=== PATIENT | male | born 1970 | race Caucasian/White ===

== ENCOUNTER 2022-04-09 14:06 | Inpatient (IN) | payer MEDICAID ==
[~2022-04-09] VITALS: Ht 165.1 cm; Wt 72.6 kg
--- NOTE | 2022-04-09 14:07 | NUR ---
AMBULATED TO ER BED 3
[2022-04-09 14:12] VITALS: BP 127/74
--- NOTE | 2022-04-09 14:20 | NUR ---
51 y/o male, c/o chest pain and cough for 2 months, worsened yesterday. pt now has sob, fever and difficulty breathing. denies nausea, vomiting, diarrhea. skin is pale/hot/dry. gibraltarian speaking, a&o x4 with even and steady gait. lungs wheezing bl, accessory muscle use/shallow resp/tachypnea, heart rate even and tachycardic. pt denies dysuria, hematuria, urinary frequency or retention, or anyone sick in the household with the same symptoms. pt states pain is 9/10 at this time. patient positioned for comfort. hob elevated. bed down. ermd made aware of pt. pmh: htn, hld, stroke 2020 nka med: vitamin c, aspirin, simvastatin
--- NOTE | 2022-04-09 14:23 | NUR ---
PT MOVED TO ER BED 1 R/O SERENA
--- NOTE | 2022-04-09 14:37 | NUR ---
labs drawn, ángel swabbed, sent to lab at this time
[2022-04-09 14:54] LABS: BASOPHILS # (AUTO) 0.1 K/uL (0.00-0.22); BASOPHILS % (AUTO) 1.2 % (0.0-2.0); EOSINOPHILS % (AUTO) 0.4 % (0.0-4.0); HEMATOCRIT 35.1 % (36-52); HEMOGLOBIN 11.5 g/dL (12.0-18.0); LYMPHOCYTES # (AUTO) 0.8 K/uL (2.0-11.5); LYMPHOCYTES % (AUTO) 8.3 % (20.5-51.1); MEAN CORPUSCULAR HEMOGLOBIN 31 pg (27-31); MEAN CORPUSCULAR HGB CONC 33 g/dL (33-37); MEAN CORPUSCULAR VOLUME 93.9 fL (80-94); MONOCYTES # (AUTO) 0.7 K/uL (0.8-1.0); MONOCYTES % (AUTO) 7.2 % (1.7-9.3); NEUTROPHILS # (AUTO) 8.2 K/uL (1.8-7.7); NEUTROPHILS % (AUTO) 82.9 % (42.2-75.2); PLATELET COUNT (AUTO) 212 K/uL (140-450); RED BLOOD CELL COUNT(AUTO) 3.74 MIL/uL (4.20-6.10); RED CELL DISTRIBUTION WIDTH 15.2 % (11.6-13.7); WHITE BLOOD COUNT (AUTO) 9.9 K/uL (4.8-10.8)
[2022-04-09] MEDS ORDERED: ACETAMINOPHEN EXTRA STRENGTH 500 MG TAB PO ONE (15:00)
[2022-04-09] MEDS ORDERED: DOXYCYCLINE 100 MG in DEXTROSE 5% 100 ML IV ONE (15:00)
[2022-04-09] MEDS ORDERED: NACL 0.9% 2,000 ML IV ONE (15:00)
--- NOTE | 2022-04-09 15:08 | NUR ---
X-Ray at bedside.
[2022-04-09 15:14] LABS: ALBUMIN 3.3 g/dL (3.4-5.0); CARBON DIOXIDE 21.7 mmol/L (21-32); CREATININE 0.8 mg/dL (0.6-1.3); POTASSIUM 3.7 mmol/L (3.5-5.1); TOTAL BILIRUBIN 1.1 mg/dL (0.0-1.0)
[2022-04-09] MEDS ORDERED: cefTRIAXone 1,000 MG VIAL ONE (15:15)
[2022-04-09] MEDS ORDERED: DOXYCYCLINE 100 MG VIAL IV ONE (16:02)
[2022-04-09] MEDS ORDERED: ASPI-1822 PO (16:23)
[2022-04-09] MEDS ORDERED: SIMV-30 PO (16:23)
[2022-04-09] MEDS ORDERED: ASCO60LO9 PO (16:23)
--- NOTE | 2022-04-09 16:45 | NUR ---
Patient will be admitted to care of Taylor PROCTOR. Admited to Telemetry. Will go to room 116. Belongings list completed. Report to Koffi LEY.
--- NOTE | 2022-04-09 16:48 | NUR ---
COVID sample obtained walked to lab.
--- NOTE | 2022-04-09 17:30 | NUR ---
RECEIVED REPORT FROM ER NURSE. ADMITTED 51 Y/O MALE WITH A CC OF SOB. ADMITTING DX OF PNA. HX OF CVA, AND CARDIAC DISORDER PER PATIENT. AOX4, ABLE TO MAKE NEEDS KNOWN. WITH SOB UPON EXERTION, ON RA, 96% SATURATION. ST ON MONITOR. NO C/O PAIN. WITH IV ON LUNA 18G, SALINE LOCKED. SAFETY AND ISOLATION PRECAUTION IN PLACE, CALL LIGHT WITHIN REACH. PLAN OF CARE DISCUSSED
[2022-04-09 17:42] VITALS: BP 134/68
--- NOTE | 2022-04-09 18:52 | NUR ---
Note juvencio in ED - [facility] be [facility] to care of Taylor PROCTOR. Admited to Telemetry. Will go to room 116. Belongings list completed. Report to Koffi LEY.
--- NOTE | 2022-04-09 19:25 | NUR ---
RECEIVED BEDSIDE REPORT FROM DAY SHIFT RN FOR CONTINUITY OF CARE. PT IS AWAKE IN BED. PT IS NOT IN ANY DISTRESS. BREATHING EVEN AND UNLABORED. PT IS AAOX4 BELARUSIAN SPEAKER. PT HAS LUNA 18 GAUGE SALINE LOCK. PT HAS NO COMPLAINS AT THIS TIME. WILL CONTINUE TO MONITOR THE PT.
[2022-04-09 20:00] VITALS: BP 110/72
[2022-04-09] MEDS ORDERED: PIPERACILLIN/TAZOBACTAM 3.375 GM VIAL IV ONE (20:17)
[2022-04-09] MEDS: PIPERACILLIN/TAZOBACTAM 3.375 GM in DEXTROSE 5% 50 ML IV SCH (20:46)
--- NOTE | 2022-04-09 20:50 | NUR ---
ALL DUE MEDS GIVEN. NO ADVERSE REACTION NOTED. WILL CONTINUE TO MONITOR THE PT.
--- NOTE | 2022-04-09 23:25 | NUR ---
PT IS SLEEPING IN BED COMFORTABLY. PT IS NOT IN ANY DISTRESS. BREATHING EVEN AND UNLABORED. CALL LIGHT WITHIN REACH. ALL SAFETY MEASURE TAKEN. WILL CONTINUE TO MONITOR THE PT.
[2022-04-10] VITALS: BP 108/70
--- NOTE | 2022-04-10 02:12 | NUR ---
PT IS ON NC 2L NOW SATING 97%. PT IS NOT IN ANY DISTRESS. BREATHING EVEN AND UNLABORED. CALL LIGHT WITHIN REACH. ALL SAFETY MEASURES TAKEN. WILL CONTINUE TO MONITOR THE PT.
--- NOTE | 2022-04-10 03:35 | NUR ---
PT LEFT FOR CT SCAN IN WHEELCHAIR
[2022-04-10] MEDS ORDERED: PIPERACILLIN/TAZOBACTAM 3.375 GM VIAL IV ONE (03:52)
[2022-04-10 04:00] VITALS: BP 114/71
[2022-04-10] MEDS: PIPERACILLIN/TAZOBACTAM 3.375 GM in DEXTROSE 5% 50 ML IV SCH ×3 (04:04→21:03)
--- NOTE | 2022-04-10 04:10 | NUR ---
ALL DUE MEDS GIVEN. NO ADVERSE REACTION NOTED. WILL CONTINUE TO MONITOR THE PT.
[2022-04-10 06:46] LABS: BASOPHILS # (AUTO) 0.2 K/uL (0.00-0.22); BASOPHILS % (AUTO) 1.9 % (0.0-2.0); EOSINOPHILS # (AUTO) 0.1 K/uL (0-0.4); HEMATOCRIT 32.4 % (36-52); HEMOGLOBIN 10.5 g/dL (12.0-18.0); LYMPHOCYTES # (AUTO) 1.4 K/uL (2.0-11.5); LYMPHOCYTES % (AUTO) 13.9 % (20.5-51.1); MEAN CORPUSCULAR HEMOGLOBIN 31 pg (27-31); MEAN CORPUSCULAR HGB CONC 32 g/dL (33-37); MEAN CORPUSCULAR VOLUME 94.6 fL (80-94); MONOCYTES # (AUTO) 0.6 K/uL (0.8-1.0); MONOCYTES % (AUTO) 5.8 % (1.7-9.3); NEUTROPHILS # (AUTO) 7.8 K/uL (1.8-7.7); NEUTROPHILS % (AUTO) 77.4 % (42.2-75.2); PLATELET COUNT (AUTO) 212 K/uL (140-450); RED BLOOD CELL COUNT(AUTO) 3.42 MIL/uL (4.20-6.10); RED CELL DISTRIBUTION WIDTH 15.4 % (11.6-13.7); WHITE BLOOD COUNT (AUTO) 10.1 K/uL (4.8-10.8)
[2022-04-10 06:55] LABS: ANION GAP 12.9 (8-16); CARBON DIOXIDE 21.2 mmol/L (21-32); CREATININE 0.7 mg/dL (0.6-1.3); POTASSIUM 4.1 mmol/L (3.5-5.1)
--- NOTE | 2022-04-10 07:08 | NUR ---
PATIENT HAS BEEN SCREENED AND CATEGORIZED MODERATE NUTRITION RISK. PATIENT WILL BE SEEN WITHIN 3-5 DAYS OF ADMISSION. / [address]
--- NOTE | 2022-04-10 07:15 | NUR ---
RECEIVED REPORT FROM CARETAKER NURSE. PT IS A&OX4, ON 2L O2, NC. PT BREATHING PATTERN UNLABORED. PT HAS RIGHT UA, 18G. ALL SAFETY MEASURES DONE, CALL LIGHT WITHIN REACH. DISCUSSED PLAN OF CARE. WILL CONTINUE TO MONITOR.
--- NOTE | 2022-04-10 07:21 | NUR ---
ENDORSED PT TO DAY SHIFT RN FOR CONTINUITY OF CARE. PT IS STABLE.
[2022-04-10 08:00] VITALS: BP 102/69
--- NOTE | 2022-04-10 08:50 | NUR ---
GAVE PT PATRICIO PHONE BACK TO HIM.
[2022-04-10] MEDS ORDERED: ONDANSETRON 4 MG/2 ML VIAL IM/IVP PRN (10:55)
[2022-04-10] MEDS ORDERED: HYDROcodone/APAP 5/325 MG 1 TAB TAB PO PRN (10:55)
[2022-04-10] MEDS ORDERED: ALBUTEROL HFA MDI 90 MCG/ACTUATION 8 GM INH PRN (10:55)
[2022-04-10] MEDS ORDERED: LORazepam 2 MG/ML VIAL IM/IVP PRN (10:55)
[2022-04-10] MEDS ORDERED: ZOLPIDEM 5 MG TAB PO PRN (10:55)
[2022-04-10] MEDS ORDERED: DOCUSATE SODIUM 100 MG GELCAP PO PRN (10:55)
--- NOTE | 2022-04-10 10:55 | NUR ---
URINE SPECIMEN COLLECTED AND BROUGHT TO LABS. STARTED IV FLUIDS NACL 1000ML AT 60ML/HR, INFUSING WELL.
[2022-04-10] MEDS: NACL 0.9% 1,000 ML IV SCH (11:28)
[2022-04-10 11:54] LABS: PROTHROMBIN TIME 11.2 secs (10.8-13.4)
[2022-04-10 12:00] VITALS: BP 92/54
--- NOTE | 2022-04-10 12:00 | NUR ---
PT IS AWAKE, LYING ON HIS BED. PT NOT IN DISTRESS AT THIS TIME. WILL CONTINUE TO MONITOR.
[2022-04-10 12:07] LABS: CHOL/HDL RATIO 4.4 (1-4.5); THYROID STIMULATING HORMONE 0.43 uIU/mL (0.34-3.74)
[2022-04-10 16:00] VITALS: BP 107/72
--- NOTE | 2022-04-10 16:00 | NUR ---
PT IS SLEEPING, LYING ON HIS BED. NO DISTRESS NOTED AT THIS TIME.
[2022-04-10 16:57] LABS: BARBITURATE, URINE NEGATIVE ng/ml (NEG <=200); BENZODIAZEPINE, URINE NEGATIVE ng/mL (NEG <=200); CANNABINOID, URINE NEGATIVE ng/mL (NEG <=50); COCAINE, URINE NEGATIVE ng/mL (NEG <=300); OPIATE, URINE NEGATIVE ng/mL (NEG <=2000); PHENCYCLIDINE SCREEN,URINE NEGATIVE ng/mL (NEG <=25)
[2022-04-10] MEDS: ACETAMINOPHEN 325 MG TAB PO PRN (18:58)
--- NOTE | 2022-04-10 18:59 | NUR ---
PT COMPLAINED OF PAIN ON UPPER ABDOMEN, WITH A PAIN LEVEL OF 3. GAVE TYLENOL PER DR'S ORDER.
--- NOTE | 2022-04-10 19:10 | NUR ---
GAVE REPORT TO LIBRARY SCIENCE INSTRUCTOR NURSE. PT IS STABLE. DISCUSSED PLAN OF CARE.
[2022-04-10 19:52] LABS: APPEARANCE,URINE CLEAR (CLEAR); BILIRUBIN,URINE NEGATIVE (NEGATIVE); BLOOD, URINE NEGATIVE (NEGATIVE); COLOR,URINE YELLOW (YELLOW); LEUKOCYTE ESTERASE ,URINE NEGATIVE (NEGATIVE); NITRITE, URINE NEGATIVE (NEGATIVE); PH,URINE 5.5 (5.0-9.0); UGLUCOSE NEGATIVE (NEGATIVE)
[2022-04-10 20:00] VITALS: BP 108/74
--- NOTE | 2022-04-10 20:00 | NUR ---
RECEIVED BEDSIDE REPORT FROM DAY SHIFT RN FOR CONTINUITY OF CARE. PT AWAKE, ALERT AND ORIENTED. PT IS NOT IN ANY DISTRESS.ON 2L O2 VIA NC WITH O2 SAT AT 97%, BREATHING EVEN AND UNLABORED.DANISH SPEAKER. PT HAS LUNA 18 GAUGE RUNNING NS AT 60MLS/HR. PT HAS NO COMPLAINS AT THIS TIME.ALL PRECAUTIONS IN PLACE.CALL LIGHT WITHIN REACH. WILL CONTINUE TO MONITOR.
[2022-04-10] MEDS: SIMVASTATIN 20 MG TAB PO SCH (21:03)
[2022-04-10] MEDS: ZINC SULF 220 MG CAP PO SCH (21:04)
--- NOTE | 2022-04-10 21:30 | NUR ---
SCHEDULED MEDICATIONS GIVEN. PT TOLERATED WELL. WILL CONTINUE TO MONITOR.
[2022-04-11] VITALS: BP 102/76
--- NOTE | 2022-04-11 | NUR ---
VITAL SIGNS STABLE. NO COMPLAINS OF PAIN. NO DISTRESS NOTED. WILL CONTINUE TO MONITOR.
[2022-04-11] MEDS: NACL 0.9% 1,000 ML IV SCH ×2 (03:38→21:12)
[2022-04-11 04:00] VITALS: BP 104/72
[2022-04-11] MEDS: PIPERACILLIN/TAZOBACTAM 3.375 GM in DEXTROSE 5% 50 ML IV SCH ×3 (05:13→21:12)
[2022-04-11 05:44] LABS: BASOPHILS % (AUTO) 0.5 % (0.0-2.0); EOSINOPHILS # (AUTO) 0.3 K/uL (0-0.4); EOSINOPHILS % (AUTO) 2.8 % (0.0-4.0); HEMATOCRIT 30.9 % (36-52); HEMOGLOBIN 10.1 g/dL (12.0-18.0); LYMPHOCYTES # (AUTO) 1.8 K/uL (2.0-11.5); MEAN CORPUSCULAR HEMOGLOBIN 31 pg (27-31); MEAN CORPUSCULAR HGB CONC 33 g/dL (33-37); MEAN CORPUSCULAR VOLUME 93.8 fL (80-94); MONOCYTES # (AUTO) 0.7 K/uL (0.8-1.0); NEUTROPHILS # (AUTO) 7.1 K/uL (1.8-7.7); NEUTROPHILS % (AUTO) 71.7 % (42.2-75.2); PLATELET COUNT (AUTO) 202 K/uL (140-450); RED BLOOD CELL COUNT(AUTO) 3.29 MIL/uL (4.20-6.10); RED CELL DISTRIBUTION WIDTH 15.2 % (11.6-13.7); WHITE BLOOD COUNT (AUTO) 9.8 K/uL (4.8-10.8)
[2022-04-11 06:14] LABS: ALBUMIN 2.7 g/dL (3.4-5.0); ANION GAP 9.4 (8-16); CARBON DIOXIDE 25.6 mmol/L (21-32); CREATININE 0.8 mg/dL (0.6-1.3); MAGNESIUM 1.9 mg/dL (1.8-2.4); PHOSPHORUS 2.9 mg/dL (2.5-4.9); TOTAL BILIRUBIN 1.1 mg/dL (0.0-1.0)
--- NOTE | 2022-04-11 07:10 | NUR ---
PT IS STABLE. NO ACUTE EVENTS THROUGHOUT THE NIGHT. ALL NEEDS MET. NO S/SX OF DISTRESS. ALL PRECAUTIONS IN PLACE. CALL LIGHT WITHIN REACH. WILL ENDORSE TO AM SHIFT NURSE.
--- NOTE | 2022-04-11 07:11 | NUR ---
PT ASLEEP. NO RESPIRATORY DISTRESS NOTED.BREATHING EQUAL AND UNLABORED. ALL PRECAUTIONS IN PLACE. WILL CONTINUE TO MONITOR.
--- NOTE | 2022-04-11 07:20 | NUR ---
RECEIVED REPORT FROM NEWS CAMERA OPERATOR NURSE FOR CONTINUITY OF CARE. PT IN BED, RESTING. BREATHING EVEN AND UNLABORED AT ROOM AIR. NO SOB, NO DISTRESS NOTED. PT A&04, ABLE TO MAKE HIS NEEDS KNOWN. PT ON ROCK CRUSHER OPERATOR. PT IS AMBULATORY, USES REST ROOM. PT SKIN IS INTACT, WARM AND DRY TO TOUCH. IV LINE AT LUNA G18, RUNNING NS AT 60ML/HR. CALL LIGHT WITHIN REACH. SAFETY MEASURES IN PLACE. WILL CONTINUE TO MONITOR.
[2022-04-11 08:00] VITALS: BP 94/58
--- NOTE | 2022-04-11 08:00 | NUR ---
Patient's Plan of Care was discussed and reviewed with FLAT FOLDING MACHINE OPERATOR: RAMSES BOLAND
[2022-04-11] MEDS: VITAMIN D 400 IU TAB PO SCH (09:10)
[2022-04-11] MEDS: ZINC SULF 220 MG CAP PO SCH ×2 (09:11→21:12)
[2022-04-11] MEDS: ASPIRIN 81 MG TAB.CHEW PO SCH (09:11)
[2022-04-11] MEDS: ASCORBIC ACID 500 MG TAB PO SCH (09:17)
--- NOTE | 2022-04-11 09:26 | NUR ---
ADMINISTERED SCHEDULED MORNING MEDS. EXPLAINED MEDS TO THE PT. PT VERBALIZED UNDERSTANDING. PT NOW SITTING IN BED EATING BREAKFAST. NO SOB. NO SIGNS OF DISTRESS. DENIES PAIN. CALL LIGHT WITHIN REACH. SAFETY MEASURES IN PLACE. BED LOCKED AND AT ITS LOWEST POSITION. WILL CONTINUE TO MONITOR.
--- NOTE | 2022-04-11 11:05 | NUR ---
PT IN SITTING IN BED, WATCHING TV. ASKED HOW PT IS. PT STATED "I'M OK". NO SOB. NO COMPLAINT OF PAIN. SAFETY PRECAUTIONS IN PLACE. WILL CONTINUE TO MONITOR.
[2022-04-11 12:00] VITALS: BP 99/57
--- NOTE | 2022-04-11 13:19 | NUR ---
DID ROUNDS. PT IN SITTING IN BED, WATCHING TV. NO COMPLAINTS OF PAIN. NO SOB. RESPIRATIONS EVEN AND UNLABORED. RN ADMINISTERED ZOSYN. CALL LIGHT WITHIN REACH. SAFETY PRECAUTIONS IN PLACE. WILL CONTINUE TO MONITOR.
--- NOTE | 2022-04-11 14:00 | NUR ---
DR GRIGSBY AT [facility]. Addendum: 04/11/22 at 1435 by Ann Ortez LVN ERROR
[2022-04-11 16:00] VITALS: BP 126/75
--- NOTE | 2022-04-11 17:02 | NUR ---
PT ON BEDSIDE CHAIR. WATCHING TV AND USING HIS CELLPHONE. PT IS ALERT, COMMUNICATING NEEDS TO NURSE. BREATHING EQUAL AND UNLABORED. NO SOB. NO SIGNS OF PAIN NOTED. CALL LIGHT WITHIN REACH. WILL CONTINUE TO MONITOR.
--- NOTE | 2022-04-11 19:10 | NUR ---
ENDORSED PT TO AIRCRAFT POWER PLANT ASSEMBLER NURSE FOR CONTINUITY OF CARE. ALL NEEDS MET THROUGHOUT SHIFT. PT IN STABLE CONDITION.
--- NOTE | 2022-04-11 19:15 | NUR ---
RECEIVED BEDSIDE REPORT FROM DAY SHIFT RN FOR CONTINUITY OF CARE. PT AWAKE, ALERT AND ORIENTED. PT IS NOT IN ANY DISTRESS.ON 2L O2 VIA NC WITH O2 SAT AT 97%, BREATHING EVEN AND UNLABORED.UZBEK SPEAKER. PT HAS LUNA 18 GAUGE RUNNING NS AT 60MLS/HR. PT HAS NO COMPLAINS AT THIS TIME.ALL PRECAUTIONS IN PLACE.CALL LIGHT WITHIN REACH. WILL CONTINUE TO MONITOR.
[2022-04-11 20:00] VITALS: BP 104/74
--- NOTE | 2022-04-11 21:00 | NUR ---
SCHEDULED MEDICATIONS GIVEN. PT TOLERATED WELL. WILL CONTINUE TO MONITOR.
[2022-04-11] MEDS: SIMVASTATIN 20 MG TAB PO SCH (21:12)
[2022-04-12] VITALS: BP 111/81
--- NOTE | 2022-04-12 | NUR ---
VITAL SIGNS STABLE. NO COMPLAINS OF PAIN. NO DISTRESS NOTED. WILL CONTINUE TO MONITOR.
[2022-04-12] MEDS: LEVOFLOXACIN 750 MG/D5W PREMIX 150 ML IV SCH ×2 (01:17→23:58)
--- NOTE | 2022-04-12 01:30 | NUR ---
SCHEDULED ANTIBIOTICS GIVEN.NO ACUTE DRUG REACTION NOTED. PT TOLERATED WELL. WILL CONTINUE TO MONITOR.
[2022-04-12] MEDS ORDERED: CLINDAMYCIN 600 MG/4 ML VIAL ONE (01:33)
[2022-04-12] MEDS: CLINDAMYCIN 600 MG in DEXTROSE 5% 50 ML IV SCH ×3 (01:34→17:14)
[2022-04-12 04:00] VITALS: BP 93/66
--- NOTE | 2022-04-12 05:02 | NUR ---
PT ASLEEP. NO RESPIRATORY DISTRESS NOTED.BREATHING EQUAL AND UNLABORED. ALL PRECAUTIONS IN PLACE. WILL CONTINUE TO MONITOR.
--- NOTE | 2022-04-12 07:03 | NUR ---
PT IS STABLE. NO ACUTE EVENTS THROUGHOUT THE NIGHT. ALL NEEDS MET. NO S/SX OF DISTRESS. ALL PRECAUTIONS IN PLACE. CALL LIGHT WITHIN REACH. ENDORSED TO AM SHIFT NURSE.
--- NOTE | 2022-04-12 07:05 | NUR ---
RECEIVED REPORT FORM STRIPPER LATEX NURSE FOR CONTINUITY OF CARE. ALERT ORIENTED ABLE TO MAKE NEEDS KNOWN . RESPIRATION EVEN AND NOT LABORED. ON O2 AT 2L/MIN VIA NASAL CANULA. PATIENT REMOVED FROM TIME TO TIME. ON IV HYDRATION OF NS AT 60 CC/HOUR ON RIGHT UPPER ARM JASWINDER 18. DENIES PAIN AT THIS TIME. DROPLET ISOLATION OBSERVED. ALL SAFETY MEASURE IN PLACE.
--- NOTE | 2022-04-12 07:30 | NUR ---
RECEIVED THE BEDSIDE REPORT FROM SEAFOOD PREPARER FOR CONTINUITY OF CARE. PLAN OF CARE DISCUSSED. PT STABLE.
[2022-04-12 07:35] LABS: BASOPHILS % (AUTO) 0.2 % (0.0-2.0); EOSINOPHILS % (AUTO) 0.1 % (0.0-4.0); HEMATOCRIT 30.5 % (36-52); HEMOGLOBIN 10.1 g/dL (12.0-18.0); LYMPHOCYTES % (AUTO) 8.2 % (20.5-51.1); MEAN CORPUSCULAR HEMOGLOBIN 31 pg (27-31); MEAN CORPUSCULAR HGB CONC 33 g/dL (33-37); MONOCYTES # (AUTO) 0.7 K/uL (0.8-1.0); NEUTROPHILS % (AUTO) 85.5 % (42.2-75.2); PLATELET COUNT (AUTO) 224 K/uL (140-450); RED BLOOD CELL COUNT(AUTO) 3.28 MIL/uL (4.20-6.10); WHITE BLOOD COUNT (AUTO) 11.7 K/uL (4.8-10.8)
[2022-04-12 07:48] LABS: ALBUMIN 2.6 g/dL (3.4-5.0); ANION GAP 10.9 (8-16); CARBON DIOXIDE 23.9 mmol/L (21-32); CREATININE 0.7 mg/dL (0.6-1.3); PHOSPHORUS 3.2 mg/dL (2.5-4.9); POTASSIUM 3.8 mmol/L (3.5-5.1); TOTAL BILIRUBIN 0.7 mg/dL (0.0-1.0)
[2022-04-12 08:00] VITALS: BP 98/72
--- NOTE | 2022-04-12 09:08 | NUR ---
DR. WELLS AND DR. URIAS SEEN PATIENT.
[2022-04-12] MEDS: ACETAMINOPHEN 325 MG TAB PO PRN (09:11)
[2022-04-12] MEDS: ASPIRIN 81 MG TAB.CHEW PO SCH (09:11)
[2022-04-12] MEDS: ASCORBIC ACID 500 MG TAB PO SCH (09:12)
[2022-04-12] MEDS: ZINC SULF 220 MG CAP PO SCH ×2 (09:12→21:04)
[2022-04-12] MEDS: VITAMIN D 400 IU TAB PO SCH (09:12)
--- NOTE | 2022-04-12 09:13 | NUR ---
GIVEN ALL DUE MEDICATION TOLERATED WELL.
--- NOTE | 2022-04-12 09:20 | NUR ---
AV WADDELL IV ANTIBIOTIC NO ADVERSE REACTION NOTED.
--- NOTE | 2022-04-12 11:34 | NUR ---
RECEIVED CALL FROM LABS THAT WE NEED TO COLLECT AGAIN SPUTUM SPECIMEN FOR THE PATIENT. INFORM PATIEN AND GAVE HIM SPUTUM CUP.
[2022-04-12 12:00] VITALS: BP 99/70
--- NOTE | 2022-04-12 14:29 | NUR ---
PATIENT CALLED THAT HIS IV WAS LEAKING. CHANGE IV TO RIGHT FOREARM JASWINDER 24. TOLERATED WELL ALL SAFETY PRECAUTION IN PLACE.
[2022-04-12] MEDS: NACL 0.9% 1,000 ML IV SCH (14:30)
--- NOTE | 2022-04-12 15:00 | NUR ---
DC PLANNING PATIENT IS A 51-YEAR-OLD MALE ADMITTED ON 04/09/2022 AT [facility]/ED DUE TO SHORTNESS OF BREATH WITH ASSOCIATED PRODUCTIVE COUGH. PATIENT ALSO COMPLAINTS OF CHEST PAIN THAT IS WORSE WITH INSPIRATION, PATIENT REPORTED FEELING FATIGUE AND HAVING FEVER WELL HAVING HX, OF HEART DISEASE AND PRIOR STROKE. (TAJIK SPEAKING) SW CALL PATIENT OVER THE PHONE AT DUE TO PATIENT NOT CLEAR WITH SYMPTOMS FOR COVID. SW DISCUSS AND GATHER PATIENT'S COLLATERAL INFORMATION. PATIENT REPORTED LIVING AT HOME WITH HIS NICHOLAS TEMPLETON AND HIS TWO ADULT DAUGHTERS IN HIS HOME IN [place]. PATIENT REPORTED HAVING TAKEN THE 3 COVID 19 SHOTS ALREADY AND WAS NOT SURE OF WHAT HE WAS FEELING BUT HE WAS NOT FEELING WELL WITH SHORTNESS OF BREATH,COUGH FEVER AND FATIGUE. THEREFORE; HE DECIDED TO COME TO THE HOSPITAL DUE TO SYMPTOMS. PER PATIENT HE HAS PLENTY OF FAMILY SUPPORT. PATIENT REPORTED BEEN ACTIVE AND INDEPENDENT AT HOME; PATIENT REPORTED NOT HAVING ADVANCE DIRECTIVES AND WAS NOT INTERESTED ON GETTING INFORMATION PACKET PROVIDED BY SW AT THE TIME OF VISIT. PATIENT STATED THAT HIS EMERGENCY CONTACT AND MEDICAL DECISION MAKERS ARE HIS NICHOLAS JARRELL AND DAUGHTER PALLAVI CAMPO . PATIENT REPORTED NOT HAVING OR NEEDING DME AND NOT HAVING ANY ISSUES WITH GETTING OR TAKING ANY MEDICATIONS HE IS GETTING FROM THE [employer] [facility] NEAR HIS HOME IN [place] [facility]. PER PATIENT HE JUST RECENTLY GOT MEDICAL AND IS GOING TO A CLINIC IN [place] AT [address] SYLVESTER ROSE. SW EXPLAINED TO PATIENT THE NEED TO FOLLOW UP WITH AN APPOINTMENT WITHIN 5-7 DAYS AFTER DC, PATIENT AGREED FOR SW TO MAKE HIS FOLLOW UP APPOINTMENT; WITH PRIMARY DOCTOR AFTER HE DISCHARGES FROM [facility]. PATIENT HAS AN APPOINTMENT SCHEDULED FOR 04/21/2022 AT 9:00AM WITH DR. BETITO UNDERWOOD. PATIENT AGREED TO ATTEND TO HIS APPOINTMENT AND ALSO REPORTED THAT ONE OF HIS DAUGHTERS WILL BE ASSISTING HIM WITH TRANSPORTATION BACK HOME WHEN HE IS READY FOR DISCHARGE. SW WILL FOLLOW UP WITH PATIENT NEEDED.
[2022-04-12 16:00] VITALS: BP 104/71
--- NOTE | 2022-04-12 16:19 | NUR ---
DC PLANNING : 51 YRS OLD MALE PATIENT WAS ADMITTED FROM HOME WITH A DX OF PNEUMONIA. PATIENT HAS A HX OF HEART DISEASE. STROKE AND HYPERLIPIDEMIA. CXR SHOWED PATCHY BILATERAL OPACITIES, MULTIFOCAL PNEUMONIA. CT CHEST NO PE. RAPID COVID TEST NEGATIVE. ADMINISTERED IVF, IV ABX LEVAQUIN , CLINDAMYCIN AND IV LASIX. CONSULTED WITH ID AND PULMO. DC PLAN TO GO HOME WHEN STABLE. CM TO FOLLOW.
--- NOTE | 2022-04-12 18:50 | NUR ---
SPUTUM COLLECTED AND SEND TO LABS.
--- NOTE | 2022-04-12 19:20 | NUR ---
GAVE REPORT [facility] SHIFT NUR[facility] FOR CONTINUITY OF CARE. PATIENT AWAKE NO DISTRESS NOTED NO ADVERSE REACTION NOTED. ON IV ANTIBIOTIC.
--- NOTE | 2022-04-12 19:41 | NUR ---
GET THE REPORT FROM MORNING NURSE MILA , PATIENT IS LYING ON BED, PATIENT IS ALERT ORIENTED X4, CALL LIGHT IS WITHIN THE REACH ,WILL CONTINUE TO MONITOR PATIENT.
[2022-04-12 20:00] VITALS: BP 118/79
--- NOTE | 2022-04-12 20:59 | NUR ---
C/O PAIN - PT. DESCRIBING THE PAIN "" HEARTBURN" - RESTING ON BED COMFORTABLY , ON TELE MONITOR HR103 - REFER TO DR. WALDEN .
[2022-04-12] MEDS: FUROSEMIDE 40 MG/4 ML VIAL IVP SCH (21:04)
[2022-04-12] MEDS: SIMVASTATIN 20 MG TAB PO SCH (21:05)
--- NOTE | 2022-04-12 21:16 | NUR ---
PATENT IS LYING ON BED, NO ANY COMPLAIN OF PAIN OR SHORTNESS OF BREATH AT THIS TIME,VITAL SIGN IS WITHIN THE NORMAL RANGE, ALL SCHEDULE MEDICATION IS GIVEN PER DOCTOR ORDER ,CALL LIGHT IS WITHIN THE REACH ,WILL CONTINUE TO MONITOR PATIENT.
[2022-04-12] MEDS ORDERED: CALCIUM CARBONATE 500 MG TAB.CHEW PO ONE (21:45)
[2022-04-12] MEDS ORDERED: CALCIUM CARBONATE 500 MG TAB.CHEW PO SCH (21:45)
--- NOTE | 2022-04-12 22:00 | NUR ---
PATIENT IS COMPLAINING OF HEART BURN , MASSAGE DIAMOND SELECTOR DOCTOR WIN ABOUT PATIENT HEART BURN DOCTOR ORDER TUMS 500 STAT ONES, AND EKG STAT , ORDER PLACED AND CARRIED OUT, EKG PICTURE SEND TO DOCTOR WALDEN , WAITING FOR DOCTOR TO REPOSE, CALL LIGHT IS WITHIN THE REACH ,WILL CONTINUE TO MONITOR PATIENT.
--- NOTE | 2022-04-12 22:27 | NUR ---
PATIENT IS ASKING FOR SLEEPING MEDICATION ,AMBIEN 5MG PO GIVEN PER DOCTOR ORDER, CALL LIGHT IS WITHIN THE REACH ,WILL CONTINUE TO MONITOR PATIENT.
--- NOTE | 2022-04-12 22:32 | NUR ---
PATIENT IS RECEIVING 2 LITER OXYGEN VIA NASAL CANULA ,ALL SCHEDULE MEDICATION IS GIVEN PER DOCTOR ORDER,CALL LIGHT IS WITHIN THE REACH ,WILL CONTINUE TO MONITOR PATIENT.
[2022-04-12] MEDS ORDERED: FAMOTIDINE 20 MG/2 ML VIAL IV SCH (23:20)
--- NOTE | 2022-04-12 23:55 | NUR ---
DR WALDEN REPLY BACK FOR HEART BURN MEDICATION PEPCID 20MG IV AT 7:30 AM BEFORE BREAKFAST DAILY , ORDER PLACED, WILL CONTINUE TO MONITOR PATIENT.
[2022-04-13] VITALS: BP 108/64
--- NOTE | 2022-04-13 00:25 | NUR ---
PATIENT IS LYING ON BED, VITAL SIGN IS WITHIN THE NORMAL RANGE, CALL LIGHT IS WITHIN THE REACH ,WILL CONTINUE TO MONITOR PATIENT.
[2022-04-13] MEDS: CLINDAMYCIN 600 MG in DEXTROSE 5% 50 ML IV SCH ×3 (01:32→17:00)
[2022-04-13 04:00] VITALS: BP 98/61
--- NOTE | 2022-04-13 05:00 | NUR ---
PATIENT IS LYING ON BED, NO ANY COMPLAIN OF PAIN OR SHORTNESS OF BREATH AT THIS TIME, VITAL SIGN IS WITHIN THE NORMAL RANGE ,CALL LIGHT IS WITHIN THE REACH, WILL CONTINUE TO MONITOR PATIENT.
[2022-04-13] MEDS: NACL 0.9% 1,000 ML IV SCH (05:35)
[2022-04-13 07:05] LABS: BASOPHILS % (AUTO) 0.1 % (0.0-2.0); HEMATOCRIT 33.5 % (36-52); HEMOGLOBIN 10.9 g/dL (12.0-18.0); LYMPHOCYTES % (AUTO) 8.3 % (20.5-51.1); MEAN CORPUSCULAR HEMOGLOBIN 30 pg (27-31); MEAN CORPUSCULAR HGB CONC 33 g/dL (33-37); MEAN CORPUSCULAR VOLUME 92.9 fL (80-94); MONOCYTES # (AUTO) 0.8 K/uL (0.8-1.0); MONOCYTES % (AUTO) 6.3 % (1.7-9.3); NEUTROPHILS # (AUTO) 10.6 K/uL (1.8-7.7); NEUTROPHILS % (AUTO) 85.3 % (42.2-75.2); PLATELET COUNT (AUTO) 280 K/uL (140-450); RED CELL DISTRIBUTION WIDTH 15.2 % (11.6-13.7); WHITE BLOOD COUNT (AUTO) 12.4 K/uL (4.8-10.8)
[2022-04-13 07:19] LABS: ALBUMIN 2.9 g/dL (3.4-5.0); ANION GAP 10.6 (8-16); CARBON DIOXIDE 24.3 mmol/L (21-32); CREATININE 0.8 mg/dL (0.6-1.3); MAGNESIUM 1.7 mg/dL (1.8-2.4); PHOSPHORUS 4.1 mg/dL (2.5-4.9); POTASSIUM 3.9 mmol/L (3.5-5.1); TOTAL BILIRUBIN 0.6 mg/dL (0.0-1.0)
--- NOTE | 2022-04-13 07:26 | NUR ---
GAVE REPORT TO MORNING NURSE BARAK FOR CONTINUOS OF CARE, PATIENT IS STABLE.
--- NOTE | 2022-04-13 07:26 | NUR ---
RECEIVED BEDSIDE REPORT FROM NIGHT RN FOR CONTINUITY OF CARE. PT SITTING UP IN CHAIR, AAOX4, KOREAN SPEAKING. ROOM AIR. SR ON TELE MONITOR. BS ACTIVE. CONTINENT OF BOWEL AND BLADDER. AMBULATORY, INDEPENDENT. SKIN INTACT. RFA 24G IV INFUSING NS AT 60 ML/HR. ON DROPLET PRECAUTIONS FOR DX COVID. SAFETY PRECAUTIONS MET. INITIAL ASSESSMENT COMPLETE. WILL CONTINUE TO CLOSELY MONITOR.
[2022-04-13] MEDS ORDERED: FAMOTIDINE 20 MG/2 ML VIAL IV SCH (07:30)
[2022-04-13 08:00] VITALS: BP 97/67
[2022-04-13] MEDS ORDERED: LEVO750T51 PO (08:11)
[2022-04-13] MEDS ORDERED: CLIN300C2 PO (08:11)
--- NOTE | 2022-04-13 08:11 | NUR ---
SEEN AND EXAMINED BY DR WELLS.
--- NOTE | 2022-04-13 09:01 | NUR ---
SEEN AND EXAMINED BY DR CHRISTIAN.
[2022-04-13] MEDS: ASPIRIN 81 MG TAB.CHEW PO SCH (09:30)
[2022-04-13] MEDS: FUROSEMIDE 40 MG/4 ML VIAL IVP SCH (09:31)
--- NOTE | 2022-04-13 11:00 | NUR ---
PT REPORTED M BM, BROWN, FORMED, NO ABNORMALITIES. WILL CONTINUE TO CLOSELY MONITOR.
[2022-04-13 12:00] VITALS: BP 101/68
--- NOTE | 2022-04-13 12:30 | NUR ---
PT FINISHED 100% LUNCH INDEPENDENTLY. TOLERATED WELL, WILL CONTINUE TO MONITOR.
--- NOTE | 2022-04-13 14:30 | NUR ---
PT RESTING COMFORTABLY, RESPIRATIONS EVEN AND UNLABORED. WILL CONTINUE TO MONITOR.
[2022-04-13 16:00] VITALS: BP 104/69
[2022-04-13 16:27] VITALS: BP 96/67
--- NOTE | 2022-04-13 16:30 | NUR ---
PT SITTING UP IN CHAIR, WATCHING TV, RESTING COMFORTABLY, NO S/S DISTRESS.
--- NOTE | 2022-04-13 17:30 | NUR ---
PT REFUSED IV ANTIBIOTICS, BECAUSE HE IS GOING HOME SOON. DOCUMENTED IN EMAR. DC RFA IV INDICATED FOR DISCHARGE. TOLERATED WELL.
--- NOTE | 2022-04-13 17:40 | NUR ---
WENT OVER DISCHARGE TEACHING WITH PT. REVIEWED MEDICATIONS, PREFERRED PHARMACY, FOLLOW UP APPOINTMENTS, AND HOME CARE. ID BAND, IV, AND TELE BOX REMOVED. PT SIGNED ALL DISCHARGE PAPERWORK. ALL QUESTIONS ANSWERED AT THIS TIME. PT VERBALIZE HE IS WAITING FOR SISTER TO COME TELEVISION SERVICE ENGINEER.
--- NOTE | 2022-04-13 18:00 | NUR ---
PT AMBULATED WITH EVEN AND STEADY GAIT TO FRONT LOBBY WITH MYSELF. PT WEARING APPROPRIATE CLOTHING. PT SENT HOME WITH ALL BELONGINGS. WITNESSED PT STEP INTO PT SISTER CAR WITH EASE.
== END 2022-04-13 18:00 | disposition home or self-care (01) | DRG 720 ==
LOC: MED 14:06 → MMU 16:13 → MTU 16:39
DX: A41.9 Sepsis, unspecified organism (principal); J96.01 Acute respiratory failure with hypoxia; I31.3 Pericardial effusion (noninflammatory); J18.9 Pneumonia, unspecified organism; J90 Pleural effusion, not elsewhere classified; E44.1 Mild protein-calorie malnutrition; I25.10 Atherosclerotic heart disease of native coronary artery without angina pectoris; J98.11 Atelectasis; E78.00 Pure hypercholesterolemia, unspecified; E78.5 Hyperlipidemia, unspecified; Z20.822 Contact with and (suspected) exposure to COVID-19; R59.1 Generalized enlarged lymph nodes; I51.7 Cardiomegaly; G47.9 Sleep disorder, unspecified; Z86.73 Personal history of transient ischemic attack (TIA), and cerebral infarction without residual deficits
CPT/HCPCS: 36415; 71045; 71275; 80048; 80053; 80305; 81003; 83036; 83605; 83615; 83690; 83735; 83880; 84100; 84134; 84443; 84484; 85025; 85379; 85610; 85651; 85730; 86140; 87040; 87081; 87205; 87635-QW; 93005; 96365; 96367; 99291; J0696; J1940; J1956; J2543; J3490; J7030; J7060; Q0092; Q9967

== ENCOUNTER 2022-06-19 02:18 | Inpatient (IN) | payer MEDICAID ==
[~2022-06-19] VITALS: Ht 165.1 cm; Wt 69.4 kg
[~2022-06-19 02:18] MED LIST: ACET-10509 PO; ASCO60LO9 PO; ASPI-1822 PO; CLIN300C2 PO; FURO-570 PO; LEVO750T51 PO; PROP20TA29 PO; SIMV-30 PO
[2022-06-19 02:25] VITALS: BP 119/70
--- NOTE | 2022-06-19 02:55 | NUR ---
PT AMBULATED TO BED 4
--- NOTE | 2022-06-19 03:02 | NUR ---
51 Y/O MALE BIBS FROM HOME, C/O COUGH x 1 WK. PT STATES HE WAS SEEM AT [facility] LAST MONTH AND WAS DX WITH PNEUMONIA AND WAS NEVER GIVEN MEDICATION. PT NOW STATES HE IS HAVING DIFFICULTY BREATHING. A/OX4, GCS-15; AMBULATORY W/O ASSISTANCE; UNLABORED BREATHING AND SPEAKING IN FULL SENTENCES, LUNGS CLEAR. SKIN IS PINK/DRY/WARM. DENIES N/V/D, COUGH, FEVER, CP, OR SOB. NO CYANOSIS. PMHx: CVA, CHF NKA
[2022-06-19 03:58] LABS: APPEARANCE,URINE CLEAR (CLEAR); BILIRUBIN,URINE NEGATIVE (NEGATIVE); BLOOD, URINE NEGATIVE (NEGATIVE); COLOR,URINE BROWN (YELLOW); LEUKOCYTE ESTERASE ,URINE NEGATIVE (NEGATIVE); NITRITE, URINE NEGATIVE (NEGATIVE); UGLUCOSE NEGATIVE (NEGATIVE)
[2022-06-19 04:04] LABS: BASOPHILS % (AUTO) 0.7 % (0.0-2.0); EOSINOPHILS # (AUTO) 0.1 K/uL (0-0.4); EOSINOPHILS % (AUTO) 1.8 % (0.0-4.0); HEMOGLOBIN 12.5 g/dL (12.0-18.0); LYMPHOCYTES # (AUTO) 1.3 K/uL (2.0-11.5); LYMPHOCYTES % (AUTO) 18.5 % (20.5-51.1); MEAN CORPUSCULAR HEMOGLOBIN 30 pg (27-31); MEAN CORPUSCULAR HGB CONC 32 g/dL (33-37); MEAN CORPUSCULAR VOLUME 91.9 fL (80-94); MONOCYTES # (AUTO) 0.6 K/uL (0.8-1.0); NEUTROPHILS # (AUTO) 4.9 K/uL (1.8-7.7); PLATELET COUNT (AUTO) 190 K/uL (140-450); RED BLOOD CELL COUNT(AUTO) 4.24 MIL/uL (4.20-6.10); RED CELL DISTRIBUTION WIDTH 16.9 % (11.6-13.7)
[2022-06-19 05:01] LABS: ALBUMIN 3.3 g/dL (3.4-5.0); ANION GAP 23.9 (8-16); CARBON DIOXIDE 23.9 mmol/L (21-32); POTASSIUM 3.8 mmol/L (3.5-5.1)
[2022-06-19] MEDS ORDERED: FUROSEMIDE 100 MG/10 ML VIAL IVP ONE (05:10)
[2022-06-19] MEDS ORDERED: FURO-572 PO (05:13)
[2022-06-19] MEDS ORDERED: LISI2.5T12 PO (05:13)
--- NOTE | 2022-06-19 05:41 | NUR ---
PT TAKEN TO CT
[2022-06-19] MEDS ORDERED: NITROGLYCERIN 0.4 MG TAB SL ONE (05:45)
--- NOTE | 2022-06-19 06:05 | NUR ---
ULTRASOUND AT BEDSIDE
[2022-06-19] MEDS ORDERED: ONDANSETRON 4 MG/2 ML VIAL IVP PRN (06:25)
[2022-06-19] MEDS ORDERED: ALBUTEROL 0.083% 2.5 MG/3 ML NEBU INH PRN (06:25)
[2022-06-19] MEDS ORDERED: ACETAMINOPHEN 325 MG TAB PO PRN (06:25)
[2022-06-19] MEDS ORDERED: MORPHINE SULFATE 2 MG/ML SYR IVP PRN (06:25)
--- NOTE | 2022-06-19 07:16 | NUR ---
GAVE TRANSFER OF CARE REPORT TO AV SCHROEDER
--- NOTE | 2022-06-19 08:38 | NUR ---
pt moved to bed 01 at this time for covid precautions.
[2022-06-19] MEDS: FUROSEMIDE 40 MG/4 ML VIAL IVP SCH ×2 (08:54→21:00)
[2022-06-19] MEDS: carvediloL 3.125 MG TAB PO SCH ×2 (08:54→17:42)
[2022-06-19] MEDS: ENOXAPARIN 40 MG/0.4 ML SYR SUBQ SCH (09:01)
--- NOTE | 2022-06-19 09:55 | NUR ---
Respiratory Therapist at bedside for respiratory intervention. Patient tolerated .
[2022-06-19] MEDS ORDERED: remdesivir COMMUNICATION ORDER 1 EA MISC MC PRN (11:45)
--- NOTE | 2022-06-19 11:49 | NUR ---
was informed by [employer], pt should be npo at this time for futher testing. pt notified.
[2022-06-19] MEDS ORDERED: remdesivir CLINICAL MONITORING 1 EA MISC MC PRN (11:50)
[2022-06-19] MEDS ORDERED: REMDESIVIR. 200 MG in NACL 0.9% 100 ML IV SCH (13:00)
--- NOTE | 2022-06-19 13:00 | NUR ---
pt gave verbal consent for remdesivir at this time
--- NOTE | 2022-06-19 13:16 | NUR ---
PATIENT HAS BEEN SCREENED AND CATEGORIZED MODERATE NUTRITION RISK. PATIENT WILL BE SEEN WITHIN 3-5 DAYS OF ADMISSION. / [address]
[2022-06-19] MEDS ORDERED: PIPERACILLIN/TAZOBACTAM 3.375 GM VIAL IV ONE (14:15)
[2022-06-19] MEDS: PIPERACILLIN/TAZOBACTAM 3.375 GM in DEXTROSE 5% 50 ML IV SCH ×3 (14:18→23:42)
[2022-06-19] MEDS ORDERED: ALBUMIN HUMAN 25% 50 ML IV SCH (15:00)
[2022-06-19 16:00] VITALS: BP 86/60
[2022-06-19 16:21] VITALS: BP 86/53
--- NOTE | 2022-06-19 19:15 | NUR ---
RECEIVED SHIFT REPORT FROM WALE LEY. PATIENT WAS STABLE AT THE BEGINNING OF THE SHIFT. PATIENT IS IN A ISOLATED ROOM BECAUSE OF RESPIRATION DROPLET PRECAUTIONS. PATIENT WAS IN BED WITH MASK ON FOR OXYGEN LEVELS EVEN CHEST RISING AND FALLING UNLABORED. PATIENT DENIED ANY PAIN/DISCOMFORT AT THIS TIME. PATIENT WAS ABLE TO EXPLAIN WHY HE IS IN THE HOSPITAL. PATIENT HAD TWO SIDE RAILS UP FOR SAFETY AND COMFORT. BED WAS AT THE LOWEST LEVEL. URINAL AT BEDSIDE FOR URINE BUT PATIENT IS ABLE TO GO TO THE RESTROOM WITHOUT INCIDENT. CALL LIGHT WITHIN REACH FOR ASSISTANCE. NURSING ENCOURAGED PATIENT TO USE THE CALL LIGHT FOR ALL NEEDS AND ASSISTANCE. PATIENT UNDERSTOOD AND AGREED. [email or web address]
[2022-06-19 20:00] VITALS: BP 91/63
--- NOTE | 2022-06-19 20:00 | NUR ---
Patient's Plan of Care was discussed and reviewed with MARCE WHITESIDE
--- NOTE | 2022-06-19 20:05 | NUR ---
PATIENT HAS LEFT THE UNIT FOR [facility] SCAN. PATIENT WAS ABLE TO AMBULATE TO THE WHEELCHAIR. NURSING NOTED PATIENT BLOOD PRESSURE WAS 88/54 PATIENT WAS COUGHING AND TIRED. [email or web address]
--- NOTE | 2022-06-19 20:27 | NUR ---
NOTIFIED NETWORKING ADMINISTRATOR MD OF PATIENT CONDITION AND DROPPING BLOOD PRESSURE. [email or web address]
--- NOTE | 2022-06-19 20:54 | NUR ---
PATIENT HAS RETURNED FROM HIDA SCAN. HAS INFORMED TO RESUME FEEDING AND ORAL MEDICATIONS. [email or web address]
[2022-06-19] MEDS: MIDODRINE 5 MG TAB PO SCH (21:01)
--- NOTE | 2022-06-19 21:05 | NUR ---
HOLD LASIX IV DUE TO LOW BLOOD PRESSURE, CALL LIGHT IS WITHIN THE REACH, WILL CONTINUE TO MONITOR PATIENT.
--- NOTE | 2022-06-19 23:44 | NUR ---
ADVISED FOR NEW ORDERS AND A CONSULT WITH DR OSEGUERA, BECAUSE PATIENT BP DROPPED TO 79/55 WITH HEART RATE 66. [email or web address]
[2022-06-19] MEDS ORDERED: NACL 0.9% 500 ML IV ONE (23:45)
--- NOTE | 2022-06-19 23:58 | NUR ---
SPOKE WITH DR OSEGUERA AND HE ADVISED TO GIVE THE BOLUS, THEN RECHECK BLOOD PRESSURE. THE DOCTOR WILL THEN ADVISE FOR FURTHER MEDICAL ADVISEMENT. [email or web address]
[2022-06-20] VITALS: BP 79/55
--- NOTE | 2022-06-20 01:05 | NUR ---
AFTER BOLUS BLOOD PRESSURE WAS NOTED AT 88/53. ADVISED MD OF THESE FINDING PER DR OSEGUERA REQUEST, AWAITING POSSIBLE ORDERS. [email or web address]
--- NOTE | 2022-06-20 03:08 | NUR ---
PATIENT NOTED IN BED ASLEEP. PATIENT KEEPS REMOVING HIS MASK, NURSING WAS GAVE EDUCATION ON WHY HE NEEDS THE MASK. PATIENT RELUCTANTLY PUT HIS MASK BACK ON AND WENT BACK TO SLEEP. BREATHING NOTED EVEN AND UNLABORED. NO COMPLAINTS OF PAIN AT THIS TIME. SIDE RAILS UP X2. CALL LIGHT WITHIN REACH FOR ASSISTANCE. [email or web address]
[2022-06-20 04:00] VITALS: BP 92/64
--- NOTE | 2022-06-20 05:05 | NUR ---
PATIENT NOTED IN BED ASLEEP. PATIENT ON OXYMIZER. BREATHING NOTED EVEN AND UNLABORED. NO COMPLAINTS OF PAIN AT THIS TIME. SIDE RAILS UP X2. CALL LIGHT WITHIN REACH FOR ASSISTANCE. [email or web address]
[2022-06-20] MEDS: PIPERACILLIN/TAZOBACTAM 3.375 GM in DEXTROSE 5% 50 ML IV SCH ×3 (05:33→18:51)
[2022-06-20] MEDS: MIDODRINE 5 MG TAB PO SCH ×3 (05:53→21:03)
--- NOTE | 2022-06-20 06:30 | NUR ---
WILL ENDORSE NEW ORDERS TO ON COMING RN. [email or web address]
--- NOTE | 2022-06-20 07:30 | NUR ---
RECEIVED REPORT FROM NIGHTSHIFT NURSE JESSICA FOR CONTINUITY OF CARE. PT IS AWAKE, A/OX4. BREATHING EVEN, REGULAR, AND UNLABORED ON 7L VIA OXYMIZER. PT IS CONTINENT OF THE BOWELS AND BLADDER. SKIN INTACT, PT DENIES PAIN. PT IN STABLE CONDITION.
--- NOTE | 2022-06-20 07:31 | NUR ---
GAVE SHIFT REPORT TO JANET LEY, PATIENT WAS STABLE AT THE SHIFT CHANGE. IN FORMED AM NURSE OF THE NEW ORDERS AND TO PLEASE FOLLOW UP. [email or web address]
[2022-06-20 07:36] LABS: BASOPHILS % (AUTO) 0.4 % (0.0-2.0); EOSINOPHILS # (AUTO) 0.1 K/uL (0-0.4); EOSINOPHILS % (AUTO) 0.9 % (0.0-4.0); HEMATOCRIT 34.5 % (36-52); HEMOGLOBIN 11.2 g/dL (12.0-18.0); LYMPHOCYTES # (AUTO) 1.4 K/uL (2.0-11.5); LYMPHOCYTES % (AUTO) 20.6 % (20.5-51.1); MEAN CORPUSCULAR HEMOGLOBIN 29 pg (27-31); MEAN CORPUSCULAR HGB CONC 32 g/dL (33-37); MEAN CORPUSCULAR VOLUME 90.3 fL (80-94); MONOCYTES # (AUTO) 0.5 K/uL (0.8-1.0); MONOCYTES % (AUTO) 7.5 % (1.7-9.3); NEUTROPHILS # (AUTO) 4.9 K/uL (1.8-7.7); NEUTROPHILS % (AUTO) 70.6 % (42.2-75.2); PLATELET COUNT (AUTO) 192 K/uL (140-450); RED BLOOD CELL COUNT(AUTO) 3.82 MIL/uL (4.20-6.10); RED CELL DISTRIBUTION WIDTH 17.1 % (11.6-13.7); WHITE BLOOD COUNT (AUTO) 6.9 K/uL (4.8-10.8)
[2022-06-20 08:00] VITALS: BP 98/54
[2022-06-20] MEDS: carvediloL 3.125 MG TAB PO SCH (08:00)
[2022-06-20 08:09] LABS: ANION GAP 15.2 (8-16); CARBON DIOXIDE 26.8 mmol/L (21-32); CREATININE 0.9 mg/dL (0.6-1.3); MAGNESIUM 1.8 mg/dL (1.8-2.4); TOTAL BILIRUBIN 1.6 mg/dL (0.0-1.0)
[2022-06-20] MEDS: FUROSEMIDE 40 MG/4 ML VIAL IVP SCH ×2 (09:00→21:00)
[2022-06-20] MEDS ORDERED: FUROSEMIDE 20 MG/2 ML VIAL IVP SCH (09:25)
[2022-06-20] MEDS: ENOXAPARIN 40 MG/0.4 ML SYR SUBQ SCH (09:55)
--- NOTE | 2022-06-20 09:57 | NUR ---
PER MD, 20 MG LASIX GIVEN, COREG HELD FOR HR 50, BP 98/54
[2022-06-20 12:00] VITALS: BP_SYST 102; BP_SYST 98; BP_DIAS 54; BP_DIAS 73
[2022-06-20] MEDS ORDERED: REMDESIVIR. 100 MG in NACL 0.9% 100 ML IV SCH (13:00)
[2022-06-20 16:00] VITALS: BP 99/72
--- NOTE | 2022-06-20 19:26 | NUR ---
ENDORSED PT TO NIGHTSHIFT NURSE LANE FOR CONTINUITY OF CARE. PT IN STABLE CONDITION.
--- NOTE | 2022-06-20 19:55 | NUR ---
GET THE REPORT FROM MORNING NURSE, PATIENT IS LYING ON BED, PATIENT IS ALERT ORIENTED 4, PATIENT IS RECEIVING OXYGEN 7 LITER VIA OXIMETER, CALL LIGHT IS WITHIN THE REACH, WILL CONTINUE TO MONITOR PATIENT.
[2022-06-20 20:00] VITALS: BP 101/92
[2022-06-20] MEDS: ATORVASTATIN 20 MG TAB PO SCH (21:03)
--- NOTE | 2022-06-20 21:06 | NUR ---
PATIENT IS LYING ON BED, NO ANY COMPLAIN OF PAIN OR SHORTNESS OF BREATH AT THIS TIME, VITAL SIGN IS WITHIN THE NORMAL RANGE,HOLD THE LASIX 40 MG DUE TO LOW BLOOD PRESSURE, ALL OTHER SCHEDULE MEDICATION IS GIVEN PER DOCTOR ORDER, CALL LIGHT IS WITHIN THE REACH, WILL CONTINUE TO MONITOR PATIENT.
[2022-06-20] MEDS ORDERED: NACL 0.9% 500 ML IV ONE (23:45)
[2022-06-21] VITALS: BP 96/51
[2022-06-21] MEDS: PIPERACILLIN/TAZOBACTAM 3.375 GM in DEXTROSE 5% 50 ML IV SCH ×4 (00:55→18:50)
--- NOTE | 2022-06-21 00:59 | NUR ---
PATIENT IS LYING ON BED, NO ANY COMPLAIN OF PAIN OR SHORTNESS OF BREATH AT THIS TIME, VITAL SIGN IS WITHIN THE NORMAL RANGE, CALL LIGHT IS WITHIN THE REACH, WILL CONTINUE TO MONITOR PATIENT.
--- NOTE | 2022-06-21 03:34 | NUR ---
PATIENT IS SITTING ON BED, NO ANY COMPLAIN OF PAIN OR SHORTNESS OF BREATH AT THIS TIME, CALL LIGHT IS WITHIN THE REACH, WILL CONTINUE TO MONITOR PATIENT.
[2022-06-21 04:00] VITALS: BP 97/65
[2022-06-21] MEDS: MIDODRINE 5 MG TAB PO SCH ×3 (04:11→21:50)
--- NOTE | 2022-06-21 04:24 | NUR ---
PATIENT IS LYING ON BED, NO ANY COMPLAIN OF PAIN OR SHORTNESS OF BREATH AT THIS TIME, VITAL SIGN IS WITHIN THE NORMAL RANGE, ALL SCHEDULE MEDICATION IS GIVEN PER DOCTOR ORDER, CALL LIGHT IS WITHIN THE REACH, WILL CONTINUE TO MONITOR PATIENT.
[2022-06-21 07:11] LABS: BASOPHILS % (AUTO) 0.4 % (0.0-2.0); HEMATOCRIT 36.4 % (36-52); HEMOGLOBIN 11.9 g/dL (12.0-18.0); LYMPHOCYTES % (AUTO) 16.4 % (20.5-51.1); MEAN CORPUSCULAR HEMOGLOBIN 30 pg (27-31); MEAN CORPUSCULAR HGB CONC 33 g/dL (33-37); MEAN CORPUSCULAR VOLUME 90.7 fL (80-94); MONOCYTES # (AUTO) 0.5 K/uL (0.8-1.0); MONOCYTES % (AUTO) 7.4 % (1.7-9.3); NEUTROPHILS # (AUTO) 4.6 K/uL (1.8-7.7); NEUTROPHILS % (AUTO) 75.8 % (42.2-75.2); PLATELET COUNT (AUTO) 203 K/uL (140-450); RED BLOOD CELL COUNT(AUTO) 4.01 MIL/uL (4.20-6.10); RED CELL DISTRIBUTION WIDTH 16.5 % (11.6-13.7); WHITE BLOOD COUNT (AUTO) 6.1 K/uL (4.8-10.8)
[2022-06-21 07:14] LABS: ANION GAP 14.7 (8-16); CREATININE 0.9 mg/dL (0.6-1.3); POTASSIUM 3.7 mmol/L (3.5-5.1); TOTAL BILIRUBIN 1.8 mg/dL (0.0-1.0)
--- NOTE | 2022-06-21 07:36 | NUR ---
GAVE THE REPORT TO MORNING NURSE KELTON FOR CONTINUOS OF CARE, PATIENT IS STABLE.
[2022-06-21 08:00] VITALS: BP 103/74
[2022-06-21] MEDS: ENOXAPARIN 40 MG/0.4 ML SYR SUBQ SCH (09:09)
[2022-06-21] MEDS: FUROSEMIDE 40 MG/4 ML VIAL IVP SCH ×2 (09:11→21:00)
[2022-06-21] MEDS: ECOTRIN 81 MG TABEC PO SCH (09:11)
[2022-06-21 12:00] VITALS: BP 98/65
[2022-06-21 16:00] VITALS: BP 111/49
--- NOTE | 2022-06-21 19:45 | NUR ---
ENDORSE PATIENT TO PM SHIFT NURSE WHILE IV ANTIBIOTIC ZOSYN INFUSING VIA R. FOREARM 18G. PATIENT SITTING NEXT TO BED WITH NO ACUT DISTRESS NOTED.
[2022-06-21 20:00] VITALS: BP 106/75
[2022-06-21] MEDS: ATORVASTATIN 20 MG TAB PO SCH (21:49)
[2022-06-22] VITALS: BP 111/60
[2022-06-22] MEDS: PIPERACILLIN/TAZOBACTAM 3.375 GM in DEXTROSE 5% 50 ML IV SCH ×3 (01:33→12:58)
[2022-06-22 04:00] VITALS: BP 105/66
[2022-06-22] MEDS: MIDODRINE 5 MG TAB PO SCH ×3 (05:09→19:00)
[2022-06-22 07:09] LABS: BASOPHILS % (AUTO) 0.1 % (0.0-2.0); HEMATOCRIT 36.1 % (36-52); HEMOGLOBIN 11.5 g/dL (12.0-18.0); LYMPHOCYTES % (AUTO) 9.8 % (20.5-51.1); MEAN CORPUSCULAR HEMOGLOBIN 29 pg (27-31); MEAN CORPUSCULAR HGB CONC 32 g/dL (33-37); MEAN CORPUSCULAR VOLUME 90.8 fL (80-94); MONOCYTES # (AUTO) 0.6 K/uL (0.8-1.0); MONOCYTES % (AUTO) 6.2 % (1.7-9.3); NEUTROPHILS # (AUTO) 8.3 K/uL (1.8-7.7); NEUTROPHILS % (AUTO) 83.9 % (42.2-75.2); PLATELET COUNT (AUTO) 210 K/uL (140-450); RED BLOOD CELL COUNT(AUTO) 3.98 MIL/uL (4.20-6.10); WHITE BLOOD COUNT (AUTO) 9.9 K/uL (4.8-10.8)
[2022-06-22 08:00] VITALS: BP 107/82
--- NOTE | 2022-06-22 08:30 | NUR ---
RECEIVED PT NOT WEARING HIS 3L OXY, HE STATED THAT IT BOTHERED HIS NOSE, PT SATURATION WAS 96%. I SWITCHED OUT THE OXY FOR A NASAL CANNULA (BUBBLE) PER PT COMFORT. NO RESPIRATORY DISTRESS NOTED.
[2022-06-22] MEDS: ECOTRIN 81 MG TABEC PO SCH (09:27)
[2022-06-22] MEDS: FUROSEMIDE 40 MG/4 ML VIAL IVP SCH (09:27)
[2022-06-22] MEDS: ENOXAPARIN 40 MG/0.4 ML SYR SUBQ SCH (09:29)
[2022-06-22 11:32] LABS: ALBUMIN 3.1 g/dL (3.4-5.0); ANION GAP 13.8 (8-16); CARBON DIOXIDE 26.7 mmol/L (21-32); CREATININE 1.1 mg/dL (0.6-1.3); POTASSIUM 3.5 mmol/L (3.5-5.1); TOTAL BILIRUBIN 1.7 mg/dL (0.0-1.0)
[2022-06-22 12:00] VITALS: BP 110/80
--- NOTE | 2022-06-22 12:26 | NUR ---
DC PLANNING: CALLED [facility] [phone] SPOKE WITH ZI IBANEZ STATED THEY ARE CONTRACTED WITH [employer] . FAXED THE ORDER TO [employer] [phone]. CALLED [employer] SPOKE WITH RADHA STATED ONCE SHE RECEIVE THE ORDER AND AUTH WILL CALL BACK FOR THE ETA. MARCELLE TO FOLLOW Addendum: 06/26/22 at 1149 by Mercedez Hamilton RN DC PLANNING: VALARIE NEELALEOLA SPOKE WITH [facility] UNABLE TO REACH ANY FAMILY MEMBER OR PATIENT. PER [facility] PROTOCOL CAN NOT DELIVER AT THE HOSPITAL. CALLED PATIENT DAUGHTER [phone] NO VOICE MAIL SET UP. PROVIDE THE [employer] PHONE NUMBER TO PATIENT. MARCELLE TO FOLLOW Addendum: 06/26/22 at 1413 by Mercedez Hamilton RN DC PLANNING: CALLED [employer] SPOKE WITH HALLEY STATED PT'S DAUGHTER WILL SPINNING ROOM WORKER THE OXYGEN TANK FROM THE OFFICE AT [facility] BRING IT TO THE [facility] NO ETA AT THIS TIME CM TO FOLLOW
--- NOTE | 2022-06-22 14:40 | NUR ---
06/22/22 RD INITIAL ASSESSMENT COMPLETED PLEASE REFER TO NUTRITION ASSESSMENT UNDER CARE ACTIVITY FOR ESTIMATED NUTRITIONAL NEEDS. 1. CONTINUE CARDIAC DIET TOLERATED 2. WILL MONITOR PO INTAKE AND NUTRITION RELATED LAB VALUES. 3. RD TO FOLLOW-UP 7 DAYS, LOW RISK REVIEWED BY TAHIR CONNORS RD
[2022-06-22 16:00] VITALS: BP 105/73
[2022-06-22 20:00] VITALS: BP 111/35
[2022-06-22] MEDS: ATORVASTATIN 20 MG TAB PO SCH (21:00)
[2022-06-23] VITALS: BP 106/66
[2022-06-23 04:27] VITALS: BP 115/79
[2022-06-23] MEDS: MIDODRINE 5 MG TAB PO SCH ×3 (07:15→18:40)
[2022-06-23 07:30] LABS: BASOPHILS % (AUTO) 0.1 % (0.0-2.0); HEMATOCRIT 37.4 % (36-52); HEMOGLOBIN 12.2 g/dL (12.0-18.0); LYMPHOCYTES # (AUTO) 0.9 K/uL (2.0-11.5); LYMPHOCYTES % (AUTO) 8.5 % (20.5-51.1); MEAN CORPUSCULAR HEMOGLOBIN 29 pg (27-31); MEAN CORPUSCULAR HGB CONC 33 g/dL (33-37); MEAN CORPUSCULAR VOLUME 90.2 fL (80-94); MONOCYTES # (AUTO) 0.7 K/uL (0.8-1.0); MONOCYTES % (AUTO) 6.7 % (1.7-9.3); NEUTROPHILS # (AUTO) 9.3 K/uL (1.8-7.7); NEUTROPHILS % (AUTO) 84.7 % (42.2-75.2); PLATELET COUNT (AUTO) 209 K/uL (140-450); RED BLOOD CELL COUNT(AUTO) 4.14 MIL/uL (4.20-6.10); RED CELL DISTRIBUTION WIDTH 16.9 % (11.6-13.7); WHITE BLOOD COUNT (AUTO) 10.9 K/uL (4.8-10.8)
[2022-06-23] MEDS: ECOTRIN 81 MG TABEC PO SCH (08:27)
[2022-06-23] MEDS: ENOXAPARIN 40 MG/0.4 ML SYR SUBQ SCH (08:27)
[2022-06-23 08:28] LABS: ALBUMIN 2.9 g/dL (3.4-5.0); ANION GAP 12.6 (8-16); CARBON DIOXIDE 27.5 mmol/L (21-32); CREATININE 1.1 mg/dL (0.6-1.3); POTASSIUM 3.1 mmol/L (3.5-5.1); TOTAL BILIRUBIN 1.6 mg/dL (0.0-1.0)
[2022-06-23] MEDS: FUROSEMIDE 40 MG TAB PO SCH (09:00)
[2022-06-23 10:18] VITALS: BP 115/79
--- NOTE | 2022-06-23 11:07 | NUR ---
POTENTIAL COVID RELATED SKIN FAILURE DUE TO TISSUE LESS TOLERATE TO PRESSURE, SHEARING AND POSSIBLE ASSOCIATED WITH MICROVASCULAR INJURY AND HYPOXIA -POSITIONING: TURN AND REPOSITION PATIENT Q 2H OR SOONER USE PILLOWS TO KEEP BONY PROMINENCES FROM DIRECT CONTACT WITH SURFACES USE REPOSITIONING WEDGES TO PROVIDE 30-DEGREE ANGLE FOR SIDE LYING POSITIONS OFFLOADING OR FOAM DRESSING TO ALL TUBING TO PREVENT MEDICAL DEVICES RELATED PRESSURE INJURY -RE-EVALUATING AND MANAGING INCONTINENCE MONITOR SKIN CONDITION DURING POSITION CHANGE DO NOT MASSAGE REDNESS, BONY PROMINENCES, DO NOT USE DONUT-TYPE DEVICES FREQUENT CINDY-CARE AND PROVIDE BARRIER CREAMS PRN IF SOILING MOISTURE CONTROL BY OFFER BED BAÑUELOS/URINAL /ABSORBENT PAD TO WICK AND HOLD MOISTURE. KEEP SKIN DRY AND PROTECT FROM FRICTION -MANAGE FRICTION/SHEAR/MOBILITY KEEP HOB AT THE LOWEST LEVEL OF ELEVATION NO MORE THAN 30 DEGREE UNLESS OTHERWISE CONTRAINDICATED USE LIFT SHEET OR TRANSFER DEVICE TO MOVE PATIENT AND PREVENT LATERAL SHEER. PROTECT HEELS, ELBOWS BONY PROMENANCES WITH SKIN BERRIES OR FOAM DRESSING IF EXPOSED TO FRICTION OFFLOAD BILATERAL HEELS BY PLACING PILLOWS UNDER CALVES AT ALL TIMES, UNLESS OTHERWISE CONTRAINDICATED -PRESSURE REDISTRIBUTION SURFACE THERAPY CODY ISOFLEX MATTRESS -NUTRITION: PLEASE FOLLOW RD RECOMMENDATIONS AND OFFER NUTRITION SUPPLEMENTS IF ORDERED. PLEASE CONTACT WOUND CARE NURSE FOR ANY QUESTION AND CHANGE OF WOUND CONDITION.
[2022-06-23 17:22] VITALS: BP 120/82
--- NOTE | 2022-06-23 17:44 | NUR ---
0730 Pt. resting quietly, no distress, isolation in place, call light in reach 1200 Pt. aaox4, vss, no acute symptoms noted, RA pox of 98% 1600 Pt. resting quietly, vss, no acute distress, isolation in place Addendum: 06/23/22 at 1802 by Agency 01 AV LEY 1800 Pt. with no distress, resting quietly, call light in reach, no ssever covid symptoms noted.
--- NOTE | 2022-06-23 19:31 | NUR ---
RECEIVED REPORT FROM AM NURSE, PATIENT IS ASLEEP, EASILY AROUSABLE BY VERBAL STIMULI DENIES PAIN, NO ACUTE RESPIRATORY DISTRESS NOTED. SKIN WARM AND DRY TO TOUCH. BED IN THE LOWEST AND LOCKED POSITION FOR SAFETY, CALL LIGHT IN REACH. ON DROPLET PRECAUTION.
[2022-06-23 20:00] VITALS: BP 128/67
[2022-06-23] MEDS: ATORVASTATIN 20 MG TAB PO SCH (20:04)
[2022-06-23] MEDS ORDERED: POTASSIUM CHLORIDE 10 MEQ TABER PO SCH (23:25)
[2022-06-24] VITALS: BP 120/61
--- NOTE | 2022-06-24 | NUR ---
PATIENT WATCHING TV AT THIS TIME. ON ROOM AIR, DENIES SHORTNESS OF BREATH. CALL LIGHT IN REACH.
[2022-06-24 04:00] VITALS: BP 100/72
--- NOTE | 2022-06-24 04:00 | NUR ---
PATIENT IS ASLEEP. NO S/SX OF PAIN NOR DISCOMFORT. CALL LIGHT WITHIN REACH.
[2022-06-24] MEDS: MIDODRINE 5 MG TAB PO SCH ×3 (06:10→18:32)
--- NOTE | 2022-06-24 06:22 | NUR ---
ALL NEEDS ATTENDED TO. NO DISTRESS NOTED. SAFETY PRECAUTIONS MAINTAINED DURING THE SHIFT, CALL LIGHT REMAINED WITHIN REACH.
[2022-06-24 07:39] LABS: HEMATOCRIT 39.4 % (36-52); HEMOGLOBIN 12.6 g/dL (12.0-18.0); LYMPHOCYTES # (AUTO) 0.7 K/uL (2.0-11.5); LYMPHOCYTES % (AUTO) 5.5 % (20.5-51.1); MEAN CORPUSCULAR HEMOGLOBIN 29 pg (27-31); MEAN CORPUSCULAR HGB CONC 32 g/dL (33-37); MEAN CORPUSCULAR VOLUME 90.6 fL (80-94); MONOCYTES # (AUTO) 1.1 K/uL (0.8-1.0); MONOCYTES % (AUTO) 8.8 % (1.7-9.3); NEUTROPHILS # (AUTO) 10.7 K/uL (1.8-7.7); NEUTROPHILS % (AUTO) 85.7 % (42.2-75.2); PLATELET COUNT (AUTO) 242 K/uL (140-450); RED BLOOD CELL COUNT(AUTO) 4.35 MIL/uL (4.20-6.10); RED CELL DISTRIBUTION WIDTH 16.9 % (11.6-13.7); WHITE BLOOD COUNT (AUTO) 12.5 K/uL (4.8-10.8)
[2022-06-24 08:00] VITALS: BP 117/81
--- NOTE | 2022-06-24 08:00 | NUR ---
SATURATION WAS 98% ON 3L TITRATE TO 2L. NOTIFIED RN
[2022-06-24] MEDS: ECOTRIN 81 MG TABEC PO SCH (09:50)
[2022-06-24] MEDS: FUROSEMIDE 40 MG TAB PO SCH (09:50)
[2022-06-24] MEDS: ENOXAPARIN 40 MG/0.4 ML SYR SUBQ SCH (09:51)
--- NOTE | 2022-06-24 10:01 | NUR ---
ADMINISTERED SCHEDULED MORNING MEDS. PT TEACHING ABOUT MEDS GIVEN. PT VERBALIZED UNDERSTANDING. CALL LIGHT WITHIN REACH. SAFETY PRECAUTIONS IN PLACE. WILL CONTINUE TO MONITOR.
--- NOTE | 2022-06-24 12:54 | NUR ---
PT SITTING AT BEDSIDE, EATING LUNCH. NO DISTRESS NOTED. NO SOB. NO DIFFICULTY BREATHING. ADMINISTERED SCHEDULED MED. PT TEACHING GIVEN. PT VERBALIZED UNDERSTANDING. WILL CONTINUE TO MONITOR.
[2022-06-24 16:00] VITALS: BP 114/73
--- NOTE | 2022-06-24 16:03 | NUR ---
SEEN AND EXAMINED BY DR OSEGUERA.
--- NOTE | 2022-06-24 17:14 | NUR ---
PT VOMITED. PRN MED ADMINISTERED BY RN. PT COMFORTABLY LYING IN BED SATTING AT 98%. WILL CONTINUE TO MONITOR.
--- NOTE | 2022-06-24 17:30 | NUR ---
PT REQUESTED FOR OMEPRAZOLE. PT STATED HE WAS TAKING IT AT HOME AND WISHES TO TAKE IT WHILE HE'S IN THE HOSPITAL. MD MADE AWARE AND ORDERED OMEPRAZOLE 20MG DAILY STARTING NOW, BUT OUR PHARMACY DOESN'T HOLD THAT MED. INFORMED PT. ASKED PT TO ASK SOMEBODY TO BRING HIS HOME MEDS. PT STATED HE'S OK WITHOUT IT.
--- NOTE | 2022-06-24 18:35 | NUR ---
DID ROUNDS: PT SITTING AT BEDSIDE. EATING DINNER. NO DISTRESS NOTED. NO SOB. NO DIFFICULTY BREATHING. DENIES PAIN. CALL LIGHT WITHIN REACH. SAFETY PRECAUTIONS IN PLACE. WILL ENDORSE TO ALLERGY AND IMMUNOLOGY SPECIALIST NURSE.
--- NOTE | 2022-06-24 19:30 | NUR ---
RECEIVED REPORT FROM DAY SHIFT NURSE SHANTANU. PATIENT WAS SITTING UP IN BED WATCHING TV. IV SITE IS R WRIST 18G, SALINE LOCKED. PATIENT IS ABLE TO AMBULATE INDEPENDENTLY. BREATHING IS NORMAL WITH SYMMETRICAL RISE AND FALL OF CHEST. PATIENT IS ON NC 2 LITERS O2. BED IS IN LOWEST POSITION, WHEELS LOCKED, CALL LIGHT IS IN PLACE. WILL CONTINUE TO OBSERVE PATIENT.
--- NOTE | 2022-06-24 19:31 | NUR ---
ENDORSED PT TO FLOOR FINISHER HELPER NURSE FOR CONTINUITY OF CARE. ALL NEEDS MET THROUGHOUT SHIFT. PT IS STABLE.
[2022-06-24 20:00] VITALS: BP 102/73
--- NOTE | 2022-06-24 20:00 | NUR ---
CHECKED 2000 VITALS. VITALS WERE: TEMP 97.2, HR 92, BP 102/73, RR 18, O2 100. PATIENT WAS STILL SITTING UP IN BED WATCHING TV. PATIENT STATED THAT HE WAS FEELING GOOD. BREATHING WAS NORMAL WITH SYMMETRICAL RISE AND FALL OF CHEST. NO FLUIDS WERE RUNNING; BED WAS IN LOWEST POSITION, WHEELS LOCKED CALL LIGHT WITHIN REACH. WILL CONTINUE TO OBSERVE PATIENT.
[2022-06-24] MEDS: ATORVASTATIN 20 MG TAB PO SCH (22:19)
--- NOTE | 2022-06-24 22:30 | NUR ---
GAVE 2100 MEDICATION. PATIENT WAS SITTING UP IN BED WATCHING TV. PATIENT TOLERATED MEDICATION WELL. PATIENT REQUESTED A SANDWICH TO EAT. GAVE PATIENT A TURKEY SANDWICH AND A NEW PITCHER OF ICE WATER. PATIENT WAS BREATHING NORMALLY WITH SYMMETRICAL RISE AND FALL OF CHEST. BED WAS IN LOWEST POSITION, WHEELS LOCKED, CALL LIGHT WITHIN REACH. PATIENT WAS REMINDED TO USE CALL LIGHT IF ANYTHING WAS NEEDED. WILL CONTINUE TO OBSERVE PATIENT.
--- NOTE | 2022-06-25 | NUR ---
LOOKED IN ON PATIENT. PATIENT WAS STILL WATCHING TV WITH ROOM LIGHT ON. ASKED PATIENT HOW HE WAS DOING, PATIENT STATED HE WAS GOOD. INFORMED PATIENT OF THE TIME AND THE IMPORTANCE OF TRYING TO GET SOME SLEEP. PATIENT SAID OKAY. BREATHING WAS NORMAL WITH SYMMETRICAL RISE AND FALL OF CHEST. NO FLUIDS WERE RUNNING. BED WAS IN LOWEST POSITION, WHEELS LOCKED, CALL LIGHT WITHIN REACH. REMINDED PATIENT TO CALL IF HE NEEDED ANYTHING. WILL CONTINUE TO OBSERVE.
--- NOTE | 2022-06-25 02:30 | NUR ---
WENT INTO PATIENT'S ROOM. PATIENT'S ROOM LIGHT WAS ON AND PATIENT WAS SITTING UP IN BED WATCHING TV. PATIENT HAD URINATED IN URINAL 800ML. EMPTIED URINAL AND ASKED THE PATIENT IF HE NEEDED ANYTHING. PATIENT STATED NO, HE WAS FINE. REMINDED PATIENT OF THE TIME AND TO TRY AND GET SOME SLEEP FOR THE NIGHT. PATIENT SAID HE WOULD. REMINDED PATIENT TO USE THE CALL LIGHT IF ANYTHING WAS NEEDED. BREATHING WAS NORMAL WITH SYMMETRICAL RISE AND FALL OF CHEST. BED WAS IN LOWEST POSITION, WHEELS LOCKED, CALL LIGHT WITHIN REACH. WILL CONTINUE TO OBSERVE PATIENT.
--- NOTE | 2022-06-25 04:30 | NUR ---
OBTAINED 0400 VITALS. BP 116/83, HR 88, RR 18, O2 92, TEMP 96.4. PATIENT WAS AWAKE SITTING IN BED WITH LIGHT ON WATCHING TV. BREATHING WAS NORMAL WITH SYMMETRICAL RISE AND FALL OF CHEST. NO FLUIDS RUNNING. WILL CONTINUE TO MONITOR.
[2022-06-25] MEDS: MIDODRINE 5 MG TAB PO SCH ×2 (06:29→12:45)
--- NOTE | 2022-06-25 06:31 | NUR ---
ADMINISTERED 0700 MEDICATION. PATIENT TOLERATED WELL. BP WAS NORMAL RANGE. WILL CONTINUE TO OBSERVE PATIENT.
[2022-06-25 07:18] LABS: HEMATOCRIT 39.9 % (36-52); HEMOGLOBIN 12.6 g/dL (12.0-18.0); LYMPHOCYTES # (AUTO) 0.6 K/uL (2.0-11.5); MEAN CORPUSCULAR HEMOGLOBIN 29 pg (27-31); MEAN CORPUSCULAR HGB CONC 32 g/dL (33-37); MEAN CORPUSCULAR VOLUME 90.9 fL (80-94); MONOCYTES # (AUTO) 0.9 K/uL (0.8-1.0); MONOCYTES % (AUTO) 7.6 % (1.7-9.3); NEUTROPHILS # (AUTO) 10.3 K/uL (1.8-7.7); PLATELET COUNT (AUTO) 250 K/uL (140-450); RED BLOOD CELL COUNT(AUTO) 4.39 MIL/uL (4.20-6.10); RED CELL DISTRIBUTION WIDTH 16.7 % (11.6-13.7); WHITE BLOOD COUNT (AUTO) 11.8 K/uL (4.8-10.8)
--- NOTE | 2022-06-25 07:30 | NUR ---
ENDORSED CARE OF PATIENT TO DAY SHIFT NURSE SHANTANU. PATIENT IS STABLE.
--- NOTE | 2022-06-25 07:35 | NUR ---
RECEIVED REPORT FROM HEALTH PROFESSOR NURSE FOR CONTINUITY OF CARE. PT IS AWAKE IN BED. A&O4, ABLE TO COMMUNICATE NEEDS. RESPIRATIONS EVEN AND UNLABORED ON 2L NC. IV SITE AT RIGHT WRIST, SL. SKIN IS INTACT AND WARM TO TOUCH. CALL LIGHT WITHIN REACH. SAFETY PRECAUTIONS IN PLACE. WILL CONTINUE TO MONITOR.
[2022-06-25 08:00] VITALS: BP 112/76
[2022-06-25] MEDS: ECOTRIN 81 MG TABEC PO SCH (08:44)
[2022-06-25] MEDS: ENOXAPARIN 40 MG/0.4 ML SYR SUBQ SCH (08:44)
[2022-06-25] MEDS: FUROSEMIDE 40 MG TAB PO SCH (08:44)
--- NOTE | 2022-06-25 09:04 | NUR ---
ADMINISTER SCHEDULED MORNING MEDS. PT TEACHING ABOUT MEDS GIVEN. PT VERBALIZED UNDERSTANDING. PT ON RA SATTING AT 97%. NO SOB. NO DIFFICULTY BREATHIG. CALL LIGHT WITHIN REACH. SAFETY PRECAUTIONS IN PLACE. WILL CONTINUE TO MONITOR.
[2022-06-25 09:14] LABS: LYMPHOCYTES % (AUTO) 5.5 % (20.5-51.1); NEUTROPHILS % (AUTO) 86.9 % (42.2-75.2)
--- NOTE | 2022-06-25 12:52 | NUR ---
PT SITTING IN BED, EATING LUNCH. NO DISTRESS NOTED. NO SOB. NO DIFFICULTY BREATHING. SATTING AT 99% ON 2L NC.
--- NOTE | 2022-06-25 15:59 | NUR ---
DID ROUNDS. PT IN BED, WATCHING TV. BREATHING EVEN AND UNLABORED. NO DISTRESS NOTED. NO COMPLAINTS OF PAIN. NO SOB. CALL LIGHT WITHIN REACH. SAFETY PRECAUTIONS IN PLACE. WILL CONTINUE TO MONITOR.
[2022-06-25 16:00] VITALS: BP 111/76
--- NOTE | 2022-06-25 18:57 | NUR ---
PT SITTING AT BEDSIDE, EATING DINNER. NO DISTRESS NOTED, ON 2L NC. SAFETY PRECAUTIONS IN PLACE. ALL NEEDS MET THROUGHOUT SHIFT. WILL ENDORSE TO WALL INSULATION SPRAYER NURSE.
--- NOTE | 2022-06-25 19:30 | NUR ---
RECEIVED REPORT FROM DAY SHIFT NURSE. PATIENT WAS SITTING UP IN BED WATCHING TV. IV SITE IS R WRIST 18 G, NO FLUIDS RUNNING. BREATHING WAS NORMAL WITH SYMMETRICAL RISE AND FALL OF CHEST. WILL CONTINUE TO OBSERVE.
--- NOTE | 2022-06-25 19:30 | NUR ---
ENDORSED PT TO RN MED SURG NURSE FOR CONTINUITY OF CARE. ALL NEEDS MET THROUGHOUT SHIFT. PT IS STABLE.
[2022-06-25 20:00] VITALS: BP 112/78
[2022-06-25] MEDS: ATORVASTATIN 20 MG TAB PO SCH (21:18)
--- NOTE | 2022-06-25 21:30 | NUR ---
LIPITOR MEDICATION WAS GIVEN AT 2117. PATIENT TOLERATED MEDICATION WELL. PATIENT WAS SITTING UP IN BED WATCHING TV. STATED THAT HE WAS FEELING GOOD AND DID NOT NEED ANYTHING. PATIENT WAS STILL SALINE LOCKED. WILL CONTINUE TO OBSERVE PATIENT.
--- NOTE | 2022-06-26 | NUR ---
LOOKED IN ON PATIENT. PATIENT WAS AWAKE AND REQUESTED A SANDWICH. GAVE PATIENT A TURKEY SANDWICH. PATIENT WAS A&O X4. PATIENT BREATHING WAS NORMAL WITH SYMMETRICAL RISE AND FALL OF CHEST. WILL CONTINUE TO OBSERVE.
--- NOTE | 2022-06-26 02:30 | NUR ---
LOOKED IN ON PATIENT. PATIENT WAS SLEEPING. BED WAS IN LOWEST POSITION, WHEELS LOCKED, CALL LIGHT IN REACH. BREATHING WAS NORMAL WITH SYMMETRICAL RISE AND FALL OF CHEST WILL CONTINUE TO OBSERVE.
[2022-06-26 04:00] VITALS: BP 104/55
--- NOTE | 2022-06-26 04:15 | NUR ---
LOOKED IN ON PATIENT. PATIENT WAS ASLEEP, BUT WAKING UP BECAUSE WARDROBE ASSISTANT WAS IN ROOM DOING VITALS. PATIENT STATED THAT HE WAS DOING GOOD AND DID NOT NEED ANYTHING. REMINDED PATIENT TO USE CALL LIGHT IF HE NEEDED ANYTHING. BREATHING WAS NORMAL WITH SYMMETRICAL RISE AND FALL OF CHEST. NO FLUIDS RUNNING.
--- NOTE | 2022-06-26 07:30 | NUR ---
RECEIVED REPORT FROM SENIOR FINANCIAL REPORTING ACCOUNTANT NURSE FOR CONTINUITY OF CARE, POC DISCUSSED. PT IS IN ISOLATION FOR COVID POSITIVE. ON 2L NC, A&OX4, RIGHT WRIST 18G SALINE LOCK. REPORTED AMBULATE TO THE REST ROOM. POC DISCUSSED. ALL SAFETY MEASURES IN PLACE, CALL LIGHT WITHIN REACH. WILL CONTINUE TO MONITOR.
--- NOTE | 2022-06-26 07:40 | NUR ---
ENDORSED CONTINUITY OF CARE TO DAY SHIFT NURSE. PATIENT IS STABLE.
[2022-06-26 08:00] VITALS: BP 112/82
[2022-06-26] MEDS ORDERED: FURO40TA9 PO (08:11)
[2022-06-26] MEDS ORDERED: DEXA6TAB1 PO (08:11)
[2022-06-26] MEDS ORDERED: ATOR20TA40 PO (08:13)
[2022-06-26] MEDS ORDERED: ASPI-1856 PO (08:13)
--- NOTE | 2022-06-26 09:00 | NUR ---
ALISHA MEDICATION ADMINISTERED PER MD ORDER, PT TOLERATED ADMINISTRATION. PT REPORTS NO PAIN, SOB AND ALL NEEDS ARE MET. EDUCATED ON ROOM PHONE, STATES HE IS MISSING HIS DENTIST APPOINTMENT THIS MORNING AT 0900 AND NEEDED TO CALL TO RESCHEDULE. PT STABLE, ALL SAFETY MEASURES IN PLACE, CALL LIGHT WITHIN REACH. WILL CONTINUE TO MONITOR.
[2022-06-26] MEDS: FUROSEMIDE 40 MG TAB PO SCH (09:20)
[2022-06-26] MEDS: ECOTRIN 81 MG TABEC PO SCH (09:20)
[2022-06-26] MEDS: ENOXAPARIN 40 MG/0.4 ML SYR SUBQ SCH (09:23)
--- NOTE | 2022-06-26 09:34 | NUR ---
SPOKE TO THE PT IN REGARD TO O2 BEING DELIVERED, STATED IT IS NOT DELIVERED. STATED THAT IT WAS SUPPOSED TO BE DELIVERED YESTERDAY, PT ANTICIPATES LATER TODAY. INFORMED PT SOON O2 IS DELIVERED, HE CAN GO HOME WHEN O2 IS BROUGHT HERE TO PICK HIM UP. PT VERBALIZED HE WILL CALL WHEN O2 IS DELIVERED.
--- NOTE | 2022-06-26 12:26 | NUR ---
SPOKE TO PT IN REGARDS TO BEING DISCHARGE AND NEEDING TO BE PICKED UP WITH HIS OXYGEN TANK. STATED NO ONE IS HOME TO PICK HIM UP, THAT HE WILL NOT HAVE THE OXYGEN AND THAT [facility] ST[facility]. EDUCATED ON ISOLATION AT HOME AND IMPORTANCE OF O2. INFORMED HIM CASE MANAGEMENT WILL BE CALLED AND WE WILL FIGURE OUT THE O2 BECAUSE HE CAN NOT GO WITHOUT O2.
--- NOTE | 2022-06-26 13:34 | NUR ---
DISCHARGE PLANNING PATIENT IS A 51-YEAR-OLD MALE ADMITTED IN THE [facility]/ED ON 06/19/2022 DUE TO SHORTNESS OF BREATH WITH POSITIVE COVID-19. SW CONTACT PATIENT VIA PHONE CALL AT HOWEVER; HIS NUMBER WAS NOT WORKING AT THE TIME OF THE CALL, THEREFORE; SW ASKED AV HARDEN TO CONNECT PATIENT TO A ROOM PHONE FOR SW TO BE ABLE TO DISCUSS AND GATHER PATIENT'S COLLATERAL INFORMATION. PATIENT FINALLY WAS ABLE TO GET IN THE ROOM PHONE WITH SW AND WAS ABLE TO COMMUNICATE WELL WITH SW. PATIENT REPORTED HAVING FAMILY SUPPORT AND LIVING WITH ONE OF HIS DAUGHTER'S AND HER IN [facility]. PATIENT CONFIRMED HIS ADDRESS AND REPORTED THAT HIS EMERGENCY CONTACT AND MEDICAL DECISION MAKER IS HIS DAUGTHER AYSE CAMPO. HE ALSO STATED NOT HAVING ADVANCE DIRECTIVES, AND DECLINED A.D INF. PACKET PROVIDED BY [employer]. PATIENT STATED NOT HAVING ANY ISSUES FOR GETTING OR TAKING HIS PRESCRIBED MEDICATIONS, FROM THE [facility] PATIENT REPORTED THAT HE IS USUALLY [facility] AND HAS NOT GONE TO THE DOCTOR IN A WHILE. HE REPORTED NOT HAVING ANY DME AND THAT PATIENT IS INDEPENDENT AND ABLE TO AMBULATE ON HIS OWN. SW INFORMED PATIENT ABOUT THE IMPORTANCE OF FOLLOW UP APPOINTMENTS WITHIN 5-7 DAYS AFTER HE IS DISCHARGE FROM [facility] AND OFFER TO MAKE HIS APPOINTMENT FOR HIM. HOWEVER; PATIENT DECLINED FOR THESE WIND TURBINE ENGINEER TO MAKE HIS APPOINMENT. STATED "NO THANK YOU MY DAUGHTER WILL CALL TO SEE MY PCP WITHIN 7 DAYS OF DISCHARGE FROM [facility]". PER PATIENT'S HIS DAUGHTER WILL BE PICKING HIM UP AND TAKING HIM BACK HOME WHEN HE IS READY TO DC. [facility] DISCUSSED WITH PATIENT HIS NEED FOR O2 AND THE AGENCY GIGI INVOLVEMENT. DISCUSSED NEEDING TO SPEAK TO HIS DAUGHTER AYSE TO LET HER KNOW ABOUT GETTING O2 EQUIPMENT AT HOME BEFORE PATIENT DC. PATIENT AGREED FOR SW TO CALL DAUGHTER PALLAVI CAMPO AT TO INFORM HER THAT PATIENT WILL NEED TO HAVE 02 EQUIPMENT AT HOME BEFORE HIS DC TODAY. PATIENT'S SON- IN LAW AND DAUGHTER WHO ANSWERED THE PHONE AGREED AND WILL BE CALLING TO DISCUSS PATIENT DC TIME TODAY AFTER THEY ARRANGE O2 EQUIPMENT AT HOME. [facility] THANKED THEM FOR THE INFORMATION AND ENDED THE CALL. SW WILL FOLLOW UP NEEDED.
--- NOTE | 2022-06-26 14:30 | NUR ---
PT CALLED NURSING STATION FRUSTRATED, WITH ASSISTANCE OF ADDITIONAL RN, ANNIE, WAS ABLE TO ANSWER PTS QUESTIONS. PT STATES HE IS READY TOO GO AND DOES NOT UNDERSTAND WHY HE IS TOLD HE IS BEING DISCHARGED BUT HAS TO KEEP WAITING. INFORMED PT THAT HE NEEDS TO WAIT UNTIL HIS DAUGHTER BRINGS THE OXYGEN TO PICK HIM UP,EXPLAIN WHY. INFORMED HIM CASE MANAGEMENT SPOKE WITH HIS DAUGHTER PALLAVI AND SHE WAS AGREEABLE, WE ARE JUST WAITING ON THE DELIVERY OF HIS OXYGEN. PT STATED HE UNDERSTOOD. PT PLACED BELONGINGS BACK IN CHAIR AND LAID BACK DOWN IN BED WITH PERSONNEL CLOTHING ON.
--- NOTE | 2022-06-26 16:19 | NUR ---
CALLED PALLAVI REGARDING ETA ON DISCHARGE AND OXYGEN DELIVERY. DAUGHTER DID NOT ANSWER, VOICEMAIL LEFT AND PROVIDED MST NUMBER TO CALL BACK. WILL FOLLOW UP
--- NOTE | 2022-06-26 17:48 | NUR ---
PT HAS BEEN DISCHARGED IN STABLE CONDITION. SON IN LAW BROUGHT HOME O2, EDUCTED ON OXYGEN AND HOW TO USE THE TANK. PT NODDED IN UNDERSTANDING. FULL DISCHARGE INSTRUCTIONS PROVIDED, MEDICATION LIST AND PREFERRED PHARMACY DISCUSSED. EDUCATED ON FOLLOW UP WITH PCP, ISOLATION, AND TAKING ALL MEDICATION PRESCRIBED. PT VERBALIZED UNDERSTANDING. PT IV REMOVED, PT DRESSED, ALL BELONGINGS IN POSSESSION. OVERNIGHT CAREGIVER WHEELCHAIRED PT OUT IN STABLE CONDITION.
== END 2022-06-26 17:55 | disposition home or self-care (01) | DRG 137 ==
LOC: MED 02:18 → MTU 06:27
PROVIDERS: ADMIT Internal Medicine; ATTEND Internal Medicine
PROC: XW033E5 Introduction of Remdesivir Anti-infective into Peripheral Vein, Percutaneous Approach, New Technology Group 5 (ICD-10-PCS; principal; 2022-06-20)
DX: U07.1 COVID-19 (principal); J96.01 Acute respiratory failure with hypoxia; J12.82 Pneumonia due to coronavirus disease 2019; I50.23 Acute on chronic systolic (congestive) heart failure; R65.10 Systemic inflammatory response syndrome (SIRS) of non-infectious origin without acute organ dysfunction; I27.20 Pulmonary hypertension, unspecified; I42.0 Dilated cardiomyopathy; I11.0 Hypertensive heart disease with heart failure; R74.01 Elevation of levels of liver transaminase levels; I25.10 Atherosclerotic heart disease of native coronary artery without angina pectoris; G40.909 Epilepsy, unspecified, not intractable, without status epilepticus; E78.5 Hyperlipidemia, unspecified; F15.10 Other stimulant abuse, uncomplicated; E78.00 Pure hypercholesterolemia, unspecified; Z86.73 Personal history of transient ischemic attack (TIA), and cerebral infarction without residual deficits; I25.2 Old myocardial infarction
CPT/HCPCS: 36415; 71045; 71275; 76705; 78223; 80053; 81003; 83605; 83690; 83735; 83880; 84484; 85025; 85379; 87040; 87081; 93005; 94640; 96365; 96375; 99285; J1650; J1940; J2405; J2543; J7060; J7613; P9046; Q0092; Q9967

== ENCOUNTER 2022-09-14 01:19 | Emergency (ER) | payer MEDICAID ==
[~2022-09-14] VITALS: Ht 165.1 cm; Wt 68.0 kg
[~2022-09-14 01:19] MED LIST changes: -ACET-10509 PO; -ASCO60LO9 PO; -ASPI-1822 PO; +ASPI-1856 PO; +ATOR20TA40 PO; -CLIN300C2 PO; -FURO-570 PO; +FURO40TA9 PO; -LEVO750T51 PO; -PROP20TA29 PO; -SIMV-30 PO; +[UNRECOGNIZED DRUG - CODE] PO
[2022-09-14 01:20] VITALS: BP 140/72
--- NOTE | 2022-09-14 01:47 | NUR ---
Dr. Hamilton examining patient.
[2022-09-14] MEDS ORDERED: FUROSEMIDE 40 MG TAB PO ONE (02:15)
[2022-09-14 02:31] LABS: BASOPHILS # (AUTO) 0.1 K/uL (0.00-0.22); BASOPHILS % (AUTO) 0.9 % (0.0-2.0); EOSINOPHILS # (AUTO) 0.1 K/uL (0-0.4); EOSINOPHILS % (AUTO) 1.8 % (0.0-4.0); HEMATOCRIT 39.9 % (36-52); HEMOGLOBIN 12.7 g/dL (12.0-18.0); LYMPHOCYTES # (AUTO) 1.7 K/uL (2.0-11.5); LYMPHOCYTES % (AUTO) 21.3 % (20.5-51.1); MEAN CORPUSCULAR HEMOGLOBIN 30 pg (27-31); MEAN CORPUSCULAR HGB CONC 32 g/dL (33-37); MEAN CORPUSCULAR VOLUME 92.7 fL (80-94); MONOCYTES # (AUTO) 0.4 K/uL (0.8-1.0); MONOCYTES % (AUTO) 5.8 % (1.7-9.3); NEUTROPHILS # (AUTO) 5.5 K/uL (1.8-7.7); NEUTROPHILS % (AUTO) 70.2 % (42.2-75.2); PLATELET COUNT (AUTO) 231 K/uL (140-450); RED CELL DISTRIBUTION WIDTH 18.2 % (11.6-13.7); WHITE BLOOD COUNT (AUTO) 7.8 K/uL (4.8-10.8)
[2022-09-14 02:53] LABS: ALBUMIN 3.3 g/dL (3.4-5.0); ANION GAP 13.6 (8-16); CARBON DIOXIDE 28.3 mmol/L (21-32); CREATININE 1.1 mg/dL (0.6-1.3); POTASSIUM 3.9 mmol/L (3.5-5.1); TOTAL BILIRUBIN 2.4 mg/dL (0.0-1.0)
[2022-09-14] MEDS ORDERED: ASPIRIN 325 MG TAB PO ONE (03:05)
[2022-09-14] MEDS ORDERED: ASPIRIN 325 MG TAB ONE (03:06)
--- NOTE | 2022-09-14 04:17 | NUR ---
PT AMB TO BED 04
--- NOTE | 2022-09-14 04:50 | NUR ---
ASSUMED CARE OF PT AT THIS TIME. PT SLEEPING, EASILY AROUSABLE. DENIES ANY NEEDS OR PAIN AT THIS TIME. VSS. WILL CONTINUE TO MONITOR PAIN/COMFORT. AWAITING RESULTS. POSSIBLE DISCHARGE.
--- NOTE | 2022-09-14 05:08 | NUR ---
DELAY IN CHARTING EKG PERFORMED DUE TO NETWORK DOWNTIME.
--- NOTE | 2022-09-14 05:28 | NUR ---
COVID-19 swabs collected and sent to lab.
--- NOTE | 2022-09-14 07:11 | NUR ---
Patient discharged with v/s stable. Written and verbal after care instructions given and explained. Patient verbalized understanding. Ambulatory with steady gait. All questions addressed prior to discharge. Advised to follow up with PMD.
[2022-09-14 07:12] VITALS: BP 132/68
== END 2022-09-14 07:05 | disposition home or self-care (01) ==
LOC: MED 01:19
DX: I50.9 Heart failure, unspecified (principal); Z20.822 Contact with and (suspected) exposure to COVID-19; R06.02 Shortness of breath
CPT/HCPCS: 36415; 71045; 80053; 83880; 84484; 85025; 93005; 99285